=== PATIENT | female | born 1990 | race Hispanic/Latino ===

== ENCOUNTER 2023-04-23 10:46 | Emergency (ER) | payer OTHER, SELFPAY ==
[2023-04-23 11:07] VITALS: BP 110/70; PULSE 89; RESP 16; TEMP 36.8; O2SAT 98
--- NOTE | 2023-04-23 11:38 | ED.SKABFB ---
HPI - Skin/Abscess/Foreign Bdy General Chief complaint: Skin/Abscess/Foreign Body Stated complaint: Open Wounds On Plevis and Armpits, Back Pain Source: patient Mode of arrival: ambulatory Limitations: no limitations History of Present Illness HPI narrative: 32 y/o female with hx RA, lupus, DM1, and hidradenitis suppurativa presented for c/o worsening pain to the wounds. Reports draining boils to bilateral axilla, right inner thigh, and left labia. Endorses pain with walking due to wounds in vaginal area. States she takes Doxy as a maintenance dose, along with clindamycin cream. Also had steroid injections into the wounds recently. She is scheduled to see a studio engineer in June. Pt also states she was seen in the ER yesterday, dx with UTI and started Cipro, hydrocodone, and cyclobenzaprine. States they did not assist with her HS symptoms. Related Data Home Medications Medication Instructions Recorded Confirmed ciprofloxacin HCl 500 mg tablet 500 mg PO DAILY 04/23/23 04/23/23 clindamycin phosphate 1 % topical 2 ea topical BID 04/23/23 04/23/23 gel cyclobenzaprine 10 mg tablet 10 mg PO DAILY 04/23/23 04/23/23 doxycycline monohydrate 100 mg 100 mg PO BID 04/23/23 04/23/23 tablet hydrocodone 5 mg-acetaminophen 325 1 tablet PO PRN PRN Pain 04/23/23 04/23/23 mg tablet hydroxychloroquine 200 mg tablet 200 mg PO DAILY 04/23/23 04/23/23 insulin glargine 100 unit/mL (3 See Rx Instructions .Route .COMPLEX 04/23/23 04/23/23 mL) subcutaneous pen (Basaglar KwikPen U-100 Insulin) liraglutide 0.6 mg/0.1 mL (18 mg/3 See Rx Instructions .Route .COMPLEX 04/23/23 04/23/23 mL) subcutaneous pen injector (Victoza 2-Ulises) Allergies Allergy/AdvReac Type Severity Reaction Status Date / Time Penicillins Allergy Unknown Verified 04/23/23 11:27 Review of Systems Review of Systems: CONSTITUTIONAL: Denies body aches, fever, chills, or sweats. EYES: Denies visual changes, redness, or discharge. ENT: Denies rhinorrhea, congestion CARDIOVASCULAR: Denies chest pain, palpitations, or edema. RESPIRATORY: Denies cough or dyspnea. GASTROINTESTINAL: Denies abdominal pain, nausea, vomiting, or diarrhea. SKIN: reports multiple sites of boils MUSCULOSKELETAL: Denies back pain, joint pain, or myalgia. NEUROLOGIC: Denies headache, numbness, tingling, or weakness. [facility] Past Medical History Medical History (Updated 04/23/23 @ 14:46 by Becky Vasquez APRN) DM type 1 (diabetes mellitus, type 1) JRA (juvenile rheumatoid arthritis) Lupus Comments At time of signature, I have reviewed and agree with nursing past medical, surgical, social and family history unless otherwise noted. Please see nursing chart for further information. There is no relevant family history pertinent to the presenting complaint Exam Narrative: GENERAL: Well-appearing HEAD: Normocephalic, atraumatic. EYES: conjunctivae clear, and EOMI. ENT: Mucous membranes moist. Oropharynx without edema, erythema or lesions. NECK: Supple. No lymphadenopathy CHEST: Clear to auscultation. HEART: Regular rate and rhythm. SKIN: Warm, dry. Scattered areas of scarring and active drainage to Bilateral axilla, bilateral labia, and right upper medial thigh approx 1cm diameter; wounds are draining purulent material c/w HS. Sites are tender. NEURO: Alert and oriented x3. Course Course Emergency Course: Patient is aware of diagnosis, understands and agrees to treatment plan. Anticipatory guidance given. Patient agrees to follow-up as directed and is aware of reasons to seek care at the emergency department. Portions of this record may have been created with voice recognition software Level of Care: Express Care Visit Vital Signs Vital signs: Vital Signs Temperature 98.3 F 04/23/23 11:07 Pulse Rate 89 04/23/23 11:07 Respiratory Rate 16 04/23/23 11:07 Blood Pressure 110/70 04/23/23 11:07 Pulse Oximetry 98 04/23/23 11:07 Oxygen Delivery
== END 2023-04-23 11:48 | disposition home or self-care (01) ==
PROVIDERS: Emergency Provider Nurse Practitioner Family
DX: L73.2 Hidradenitis suppurativa (principal); E10.9 Type 1 diabetes mellitus without complications; Z79.899 Other long term (current) drug therapy; Z79.4 Long term (current) use of insulin; Z79.891 Long term (current) use of opiate analgesic
CPT/HCPCS: 99203; G0463

== ENCOUNTER 2023-07-03 18:29 | Emergency (ER) | payer OTHER, SELFPAY ==
[2023-07-03 18:48] VITALS: BP 133/80; PULSE 91; RESP 18; TEMP 36.7; O2SAT 100
--- NOTE | 2023-07-03 19:34 | ED.URI ---
HPI - URI/Sore Throat General Chief Complaint: Upper Respiratory Infection Stated Complaint: headache,abdominal pain Time Seen by Provider: 07/03/23 19:37 Source: patient and RN notes reviewed Mode of arrival: ambulatory Limitations: no limitations History of Present Illness HPI Narrative: 32-year-old female with hx DM, lupus, HS, presented for complaint of headache, fatigue, abdominal pain, n/v/d intermittently x6 days. Also reports increased thirst, mild sore throat, cough and congestion which are improving. Reports pain is 5/10 to head and middle abdomen. Endorses decreased PO intake due to reflux and nausea. Family has similar symptoms. Taking Excedrin and Benadryl. Reports BS readings yesterday 65-72, did not check levels today. LMP 06/20. Hx jose. Related Data Home Medications Medication Instructions Recorded Confirmed cyclobenzaprine 10 mg tablet 10 mg PO DAILY 04/23/23 04/23/23 hydrocodone 5 mg-acetaminophen 325 1 tablet PO PRN PRN Pain 04/23/23 04/23/23 mg tablet hydroxychloroquine 200 mg tablet 200 mg PO DAILY 04/23/23 04/23/23 insulin glargine 100 unit/mL (3 See Rx Instructions .Route .COMPLEX 04/23/23 04/23/23 mL) subcutaneous pen (Basaglar KwikPen U-100 Insulin) liraglutide 0.6 mg/0.1 mL (18 mg/3 See Rx Instructions .Route .COMPLEX 04/23/23 04/23/23 mL) subcutaneous pen injector (Victoza 2-Ulises) Allergies Allergy/AdvReac Type Severity Reaction Status Date / Time Penicillins Allergy Unknown Verified 07/03/23 19:44 Review of Systems Review of Systems: CONSTITUTIONAL: Reports body aches, fever, chills ENT: Reports rhinorrhea, congestion, right ear pain CARDIOVASCULAR: Denies chest pain, palpitations, or edema. RESPIRATORY: Reports cough denies dyspnea. GASTROINTESTINAL: Endorses abdominal pain, nausea, vomiting, diarrhea. Denies hematochezia, melena, hematemesis GENITOURINARY: Denies dysuria, hematuria, or CVA tenderness. SKIN: Denies rash, itching, or wounds. MUSCULOSKELETAL: Denies back pain, joint pain, myalgia. NEUROLOGIC: Reports headache, denies dizziness, numbness, tingling, or weakness. All systems reviewed & are unremarkable except as noted in HPI and below PMFSH Past Medical History Medical History (Updated 07/03/23 @ 20:17 by Becky Vasquez APRN) DM type 1 (diabetes mellitus, type 1) JRA (juvenile rheumatoid arthritis) Lupus Comments At time of signature, I have reviewed and agree with nursing past medical, surgical, social and family history unless otherwise noted. Please see nursing chart for further information. There is no relevant family history pertinent to the presenting complaint Exam Narrative: GENERAL: Well-appearing, and in no acute distress. EYES: EOMI. Conjunctivae normal. ENT: Mucous membranes pink and moist. Right ear with excess cerumen. Left TM normal. Throat normal. CHEST: No respiratory distress. Clear to auscultation. HEART: Regular rate and rhythm. No murmur appreciated. Normal peripheral pulses. ABDOMEN: abd soft, nondistended, hyper active bowel sounds. Mildly Tender abdomen to epigastric area. No guarding, rebound tenderness, asymmetry EXTREMITIES: Normal range of motion. No edema. SKIN: Warm, dry, no rash. Capillary refill normal. Normal skin turgor. NEURO: No focal deficits. Alert and oriented x3. PSYCH: Normal affect. Course Course Emergency Course: Patient is aware of diagnosis, understands and agrees to treatment plan. Anticipatory guidance given. Patient agrees to follow-up as directed and is aware of reasons to seek care at the emergency department. Portions of this record may have been created with voice recognition software Level of Care: Express Care Visit Vital Signs Vital signs: Vital Signs Temperature 98.1 F 07/03/23 18:48 Pulse Rate 91 07/03/23 18:48 Respiratory Rate 18 07/03/23 18:48 Blood Pressure 133/80 07/03/23 18:48 Pulse Oximetry 100 07/03/23 18:48 Oxygen Delivery Room
== END 2023-07-03 20:00 | disposition home or self-care (01) ==
PROVIDERS: Emergency Provider Nurse Practitioner Family; PCP Physician Assistant
DX: B34.9 Viral infection, unspecified (principal); E10.9 Type 1 diabetes mellitus without complications; M08.00 Unspecified juvenile rheumatoid arthritis of unspecified site; M32.9 Systemic lupus erythematosus, unspecified; F17.290 Nicotine dependence, other tobacco product, uncomplicated
CPT/HCPCS: 99213; G0463

== ENCOUNTER 2023-11-20 13:31 | Emergency (ER) | payer OTHER, SELFPAY ==
[2023-11-20 13:44] VITALS: BP 124/68; PULSE 97; RESP 16; TEMP 36.3; O2SAT 99
--- NOTE | 2023-11-20 13:44 | ED.FEMALEGU ---
HPI - Female Genitourinary General Chief complaint: Skin/Abscess/Foreign Body Stated complaint: pain in pelvic region Time Seen by Provider: 11/20/23 13:44 Source: patient Mode of arrival: ambulatory Limitations: no limitations History of Present Illness HPI Narrative: 33-year-old female presents with complaint of draining abscesses to bilateral axilla, left groin. History of hidradenitis. Sees a television program director at [facility]. Normally does clindamycin ointment, doxycycline twice a day and Cosentyx once a month. states she was having issues with her insurance and was not able to get Cosentyx for the past 2 months. States she was doing really well and not getting any abscesses. Afebrile. Problem with insurance has been fax and will get Cosentyx this Month. All systems reviewed and negative except as noted above. Related Data Home Medications Medication Instructions Recorded Confirmed insulin glargine 100 unit/mL (3 See Rx Instructions .Route .COMPLEX 04/23/23 04/23/23 mL) subcutaneous pen (Basaglar KwikPen U-100 Insulin) liraglutide 0.6 mg/0.1 mL (18 mg/3 See Rx Instructions .Route .COMPLEX 04/23/23 04/23/23 mL) subcutaneous pen injector (Victoza 2-Ulises) gabapentin 300 mg capsule mg 11/20/23 lisinopril 10 mg tablet mg 11/20/23 secukinumab 25 mg/mL intravenous mg IV 11/20/23 solution (Cosentyx) Allergies Allergy/AdvReac Type Severity Reaction Status Date / Time morphine Allergy Rash Verified 11/20/23 13:49 Penicillins Allergy Anaphylaxis Verified 11/20/23 13:49 Review of Systems Review of Systems: CONSTITUTIONAL: Denies fever, chills, or sweats. EYES: Denies visual changes, redness, or discharge. ENT: Denies rhinorrhea, congestion, sore throat, or otalgia. CARDIOVASCULAR: Denies chest pain, palpitations, or edema. RESPIRATORY: Denies cough or dyspnea. GASTROINTESTINAL: Denies abdominal pain, nausea, vomiting, or diarrhea. GENITOURINARY: Denies dysuria or hematuria. SKIN: Denies rash or itching. Reports abscess to bilateral axilla and left groin. MUSCULOSKELETAL: Denies back pain, joint pain, or myalgia. NEUROLOGIC: Denies headache, numbness, or weakness. PSYCHIATRIC: Denies anxiety or depression. All other systems reviewed are negative, except as documented in HPI. [facility] Past Medical History Medical History (Updated 11/20/23 @ 14:04 by Charity Varela NP) DM type 1 (diabetes mellitus, type 1) JRA (juvenile rheumatoid arthritis) Lupus Comments At time of signature, agree with nursing past medical, surgical, social and family history. There is no relevant family history pertinent to the presenting complaint. Exam Narrative: GENERAL: This is a well-nourished, well-developed patient, in no apparent distress. HEAD: normocephalic, atraumatic. EYES: PERRL. Sclera clear/white. Vision is grossly intact. EARS: External ears normal NOSE: External nose normal NECK: Neck supple, non-tender without lymphadenopathy, masses or thyromegaly. CARDIOVASCULAR: Regular rate and rhythm without murmurs, gallops, or rubs. RESPIRATORY: Clear to auscultation. Breath sounds equal bilaterally. No wheezes, rales, or rhonchi. SKIN: warm, Dry, intact with no suspicious rash, good texture and turgor. draining abscess to L groin approx. 4cm. erythematous. no significant fluctuance. 2 to 3 small erythematous abscesses to bilateral axilla, draining. less than 1 cm each. NEURO: awake, alert, and oriented to person, place and time. There were no obvious focal neurologic abnormalities. EXTREMITIES: No joint tenderness, effusion, or edema noted. Course Course Level of Care: Express Care Visit Vital Signs Vital signs: Vital Signs Temperature 36.3 C L 11/20/23 13:44 Pulse Rate 97 11/20/23 13:44 Respiratory Rate 16 11/20/23 13:44 Blood Pressure 124/68 11/20/23 13:44 Pulse Oximetry 99 11/20/23 13:44 Oxygen Delivery Room Air 11/20/23 13:44 Temperature 36.3 C L
[2023-11-20 13:51] LABS: EDUAAPPEAR Cloudy; EDUABILI Negative; EDUABLOOD Negative; EDUACOLOR1 Yellow; EDUAGLUCOSE 2+; EDUAKETONE Negative; EDUALEUKO Trace; EDUANITRATE Negative; EDUAPROTEIN 1+; EDUAUROBILI 0.2
== END 2023-11-20 14:07 | disposition home or self-care (01) ==
PROVIDERS: Emergency Provider Nurse Practitioner Family; PCP Physician Assistant
DX: L02.214 Cutaneous abscess of groin (principal); L02.412 Cutaneous abscess of left axilla; L02.411 Cutaneous abscess of right axilla; E10.9 Type 1 diabetes mellitus without complications; M08.00 Unspecified juvenile rheumatoid arthritis of unspecified site; M32.9 Systemic lupus erythematosus, unspecified
CPT/HCPCS: 81003; 87070; 87205; 99213; G0463

== ENCOUNTER 2023-11-26 18:22 | Emergency (ER) | payer OTHER, SELFPAY ==
[2023-11-26 18:38] VITALS: BP 137/67; PULSE 89; RESP 14; TEMP 36.7; O2SAT 100
--- NOTE | 2023-11-26 19:58 | PC.NURSE ---
Pt ambulated to director of front office and stated she would like to leave. This RN removed her IV, pt ambulated out of the ED.
== END 2023-11-26 20:58 | disposition left against medical advice (07) ==
PROVIDERS: PCP Physician Assistant
DX: S09.90XA Unspecified injury of head, initial encounter (principal)
CPT/HCPCS: 99199

== ENCOUNTER 2024-04-13 16:18 | Emergency (ER) | payer OTHER, SELFPAY ==
--- NOTE | 2024-04-13 16:20 | ED_ITS ---
HPI - URI/Sore Throat General Chief Complaint: Upper Respiratory Infection Stated Complaint: head pain and body pain/ throat pain Time Seen by Provider: 04/13/24 16:19 Source: patient Mode of arrival: ambulatory Limitations: no limitations History of Present Illness HPI Narrative: Fide is a 33-year-old female patient presenting to the clinic today with complaints of headache, body aches, and itchy throat. She reports itchy throat with cough x 1 week but headache and body aches started today. History of Migraine SANCHEZ. Also has history of type 1 diabetes, lupus, RA, and hidradenitis. No fever or chills. Denies chest pain or shortness of breath. Takes doxycycline oral and clindamycin gel daily for hidradenitis. States she would also like her blood sugar checked as she has not been able to check as her monitor is not working. MD elicited complaint: sore throat and other (Headache, bodyaches) Related Data Home Medications ?Medication ?Instructions ?Recorded ?Confirmed ?Last Taken ?Type insulin glargine 100 unit/mL (3 See Rx Instructions .Route .COMPLEX 04/23/23 04/23/23 Unknown History mL) subcutaneous pen (Basaglar KwikPen U-100 Insulin) liraglutide 0.6 mg/0.1 mL (18 mg/3 See Rx Instructions .Route .COMPLEX 04/23/23 04/23/23 Unknown History mL) subcutaneous pen injector (Victoza 2-Ulises) gabapentin 300 mg capsule mg 11/20/23 Unknown History lisinopril 10 mg tablet mg 11/20/23 Unknown History secukinumab 25 mg/mL intravenous mg IV 11/20/23 Unknown History solution (Cosentyx) doxycycline hyclate 100 mg tablet mg 04/13/24 Unknown History Allergies Allergy/AdvReac Type Severity Reaction Status Date / Time morphine Allergy Rash Verified 11/26/23 18:23 Penicillins Allergy Anaphylaxis Verified 11/26/23 18:23 Review of Systems Review of Systems: Pertinent positives per HPI. Patient denies any fever, chills, rash, visual changes, dizziness, shortness of breath, chest pain, palpitations, nausea, vomiting, diarrhea, constipation, abdominal pain, or any urinary issues. [facility] Past Medical History Medical History (Updated 04/13/24 @ 16:57 by Adan Hollingsead, WINDOWS APPLICATION PACKAGER) DM type 1 (diabetes mellitus, type 1) JRA (juvenile rheumatoid arthritis) Lupus Comments At the time of my signature, I reviewed and agree with the nursing past medical, surgical, social, and family history. There is no relevant family history pertinent to the patient complaint. Exam Narrative: General: Well-developed, well nourished, in no apparent distress Head: Normocephalic, atraumatic Eyes: Pupils equally round and reactive to light bilaterally, EOM intact, sclera and conjunctive clear, no discharge, lids normal Ears: TMs intact and clear, ear canals clear, no drainage, grossly hearing normal. Nose: Nares patent, clear nasal discharge, no inflammation, no sinus tenderness. Mouth: Oral pharynx without lesions or masses, good dentition, MMM. Neck: Supple, trachea midline, no enlargement of anterior or posterior cervical nodes, no thyroid masses or goiter palpable. Cardio: Regular rate and rhythm, s1 and s2 normal, no murmur appreciated. Resp: Clear to auscultation bilaterally, no rhonchi, rales, wheezing or rubs Course Course Emergency Course: Portions of this record may have been created with voice recognition software. Level of Care: Express Care Visit Vital Signs Vital signs: Vital Signs Temperature 36.3 C L 04/13/24 16:29 Pulse Rate 88 04/13/24 16:29 Respiratory Rate 18 04/13/24 16:29 Blood Pressure 119/74 04/13/24 16:29 Pulse Oximetry 98 04/13/24 16:29 Oxygen Delivery Room Air 04/13/24 16:29 Temperature 36.3 C L 04/13/24 16:29 Pulse Rate 88 04/13/24 16:29 Respiratory Rate 18 04/13/24 16:29 Blood Pressure 119/74 04/13/24 16:29 Pulse Oximetry 98 04/13/24 16:29 Oxygen Delivery Room Air 04/13/24 16:29 Vital signs reviewed MDM - URI/Sore Throat MDM Narrative Medical decision making narrative: At the time of visit patient is resting comfortably on the exam table. Patient appears to be nontoxic. Labs: Covid, Strep, and bedside glucose was performed. Blood glucose was 249. COVID and strep test were negative. We will send strep for culture. Plan: I suspect patient has postnasal drip that is likely causing the itchy throat. No obvious sign thrush. I also suspect patient has a flare-up of her autoimmune disorders. Recommend increasing gabapentin by 300 mg at night daily to see if this helps alleviate some of her symptoms. She can also take Tylenol as needed for pain. Continue current medications. Will send in a new blood glucose monitor with strips to the pharmacy. Supportive measures were discussed with the patient and they voiced understanding discharge instructions and agrees to treatment plan. Return precautions reviewed Differential Diagnosis Differential diagnosis: Likely upper respiratory infection, otitis media, sinusitis, viral infection, bronchitis, influenza, pharyngitis and other (Over) Lab Data Labs: Lab Results 04/13/24 04/13/24 04/13/24 Range/Units 16:38 16:53 16:54 POC Capillary Glucose 249 H (65-105) mg/dl POC SARS CoV-2 Ag Negative (Negative) POC Grp A Strep Screen Negative (Negative) Discharge Plan Discharge Clinical Impression: PND (post-nasal drip), Generalized body aches Headache Qualifiers: Headache type: unspecified Headache chronicity pattern: acute headache Intractability: not intractable Qualified Code(s): R51.9 - Headache, unspecified Patient Disposition: Home, Self-Care Condition: Stable Instructions: Antibiotic Form, Acute Headache (DC), Musculoskeletal Pain (ED), Postnasal Drip (DC) Additional Instructions: El nivel de az?car en debbie fue 249 en la cl?lina hoy. La prueba de estreptococos y la prueba de COVID dieron negativas hoy en la cl?lina. Enviaremos estreptococos para un cultivo. Si el resultado es positivo, nos comunicaremos con ?l y le recetaremos antibi?ticos en joycelyn momento. Le enviaremos un nuevo monitor de az?car en debbie y tiras a wells farmacia. Puede aumentar la gabapentina: tome 1 c?psula adicional antes de acostarse. Aumente los l?quidos y mant?ngase kemal hidratado. Puede kimberley Tylenol adicionalmente seg?n sea necesario para el dolor y continuar con los medicamentos actuales. Flonase y antihistam?nicos de venta carole seg?n las indicaciones, doris Zyrtec o Claritin Vaya al servicio de urgencias si wells afecci?n empeora: fiebre grace que no se cont sonali con Tylenol o Motrin, deshidrataci?n, debilidad, letargo, dificultad para respirar o dolor en el pecho. Hema un seguimiento con wells PCP en 3 a 5 d?as si los s?ntomas persisten. Patient Language: Serbian Prescriptions: New (DME) Accu-Chek Anita Plus test strp Strip See Rx Instructions .Route Qty: 100 0RF Rx Instructions: As directed May substitute brand No Action insulin glargine [Basaglar KwikPen U-100 Insulin] 100 unit/mL (3 mL) insulin pen See Rx Instructions .ROUTE .COMPLEX Rx Instructions: see rx instructions Victoza 2-Ulises 0.6 mg/0.1 mL (18 mg/3 mL) pen injector See Rx Instructions .ROUTE .COMPLEX Rx Instructions: for type 1 diabetes lidocaine HCl 3 % lotion 1 applic topical TID PRN (Reason: pain) Qty: 177 0RF Rx Instructions: external use only lisinopril 10 mg tablet gabapentin 300 mg capsule Cosentyx 25 mg/mL Solution IV doxycycline hyclate 100 mg tablet Follow-up/Referrals: Mery,YINA Donovan [Primary Care Provider] - Time of Disposition: 16:57 Quality NIHSS Nursing Documentation ED NIHSS nursing documentation: reviewed/agree
[2024-04-13 16:29] VITALS: BP 119/74; PULSE 88; RESP 18; TEMP 36.3; O2SAT 98
[2024-04-13 16:41] LABS: Glucose Point of Care 249 mg/dl (65-105)
[2024-04-13 16:55] LABS: EDCOVIDSCREEN Negative (Negative)
[2024-04-13 16:55] LABS: EDSTREPNEGPOS1 Negative (Negative)
== END 2024-04-13 17:02 | disposition home or self-care (01) ==
PROVIDERS: Emergency Provider Nurse Practitioner Family; PCP Physician Assistant
DX: R09.82 Postnasal drip (principal); M79.10 Myalgia, unspecified site; R51.9 Headache, unspecified; Z20.822 Contact with and (suspected) exposure to COVID-19; E10.9 Type 1 diabetes mellitus without complications; M08.00 Unspecified juvenile rheumatoid arthritis of unspecified site
CPT/HCPCS: 82948; 87081; 87426; 87880; 99213; G0463

== ENCOUNTER 2025-04-06 11:41 | Emergency (ER) | payer MEDICAID, SELFPAY ==
--- NOTE | ~2025-04-06 | XR_ITS ---
Examination: XR chest 2V Clinical History: COUGH, RUNNY NOSE FEVER x1 WK Comparison: None Technique: PA and Lateral Findings: Cardiomediastinal silhouette normal size and configuration. Lungs clear. No acute bony abnormality. IMPRESSION: 1. No acute cardiopulmonary findings. Reviewed, dictated and finalized at location [facility]
--- NOTE | 2025-04-06 11:44 | ECG_ITS ---
Test Date: 2025-04-06 11:52:06 Measurements Intervals [place] Rate: 90 P: 42 SC: 147 QRS: -10 QRSD: 106 T: 11 QT: 353 QTc: 432 Interpretive Statements SINUS RHYTHM INCOMPLETE RIGHT BUNDLE BRANCH BLOCK DELAYED PRECORDIAL R/S TRANSITION CONSIDER INFERIOR INFARCT, AGE INDETERMINATE BASELINE ARTIFACT- V3, V5 ABNORMAL ECG No previous ECG available for comparison Electronically Signed On 04-06-2025 12:01:34 ASSISTANT DESIGNER by Kodi Christopher D.O.
[2025-04-06 11:45] VITALS: BP 144/82; PULSE 95; RESP 16; TEMP 36.4; O2SAT 100
--- OUTSIDE RECORDS SUMMARY | 2025-04-06 11:57 | XMS_ITS | Clinical Summary ---
Author Organization [facility] Address [address] [place] [address] Phone Care Team Providers Care Environmental Aid Name Role Phone Unavailable Primary Care Provider Unavailabl e Allergies Active Allergy Reactions Criticality Noted Date Comments Morphine Itching,Rash,Hives High 03/20/2023 Penicillins Other (See Comments) 12/19/2021 unknown Medications lancets 33 gauge Use to test blood sugar 3 times daily 100 Each 3 06/04/2022 Active blood sugar diagnostic (Blood Glucose Test) Strip Please use test strip to test blood sugar 3 times a day 100 Strip 3 06/04/2022 Active Blood-Glucose Meter Use to test blood sugar up to 3 times daily 1 Each 06/04/2022 Active traMADol 25 mg Tablet Take 25 mg by mouth every 6 hours as needed for Pain. Active Blood-Glucose Sensor (FreeStyle Jina 3 Sensor) Device Change sensor every 14 days 2 Each 08/30/2022 5:00 PM CDT 08/30/2022 Active Insulin [place], Disposable, 32 gauge x 5/32 Needle Use to inject insulin 4 times daily. 100 Each 08/31/2022 3:14 PM CDT 08/31/2022 Active Insulin [place], Disposable, (Dorothy Pen Needle) 32 gauge x 5/32 Needle Use with insulin as directed 100 Each 1 10/26/2022 3:56 PM CDT 10/26/2022 Active Active Problems Problem Noted Date Diagnosed Date Acute cystitis 10/25/2022 Hemorrhagic ovarian cyst 10/25/2022 Ovarian mass, left 10/25/2022 Cellulitis 08/30/2022 Skin abscess 06/03/2022 Abscess of suprapubic region 12/21/2021 Type 1 diabetes mellitus with hyperglycemia 11/2021 Groin region, multiple sites 12/20/2021 Hidradenitis suppurativa 12/20/2021 Fibromyalgia 12/20/2021 Systemic lupus erythematosus 12/20/2021 Obesity (BMI 30.0-34.9) 12/20/2021 Uncontrolled type 1 diabetes mellitus with hyper glycemia 12/20/2021 JRA (juvenile rheumatoid arthritis) 12/20/2021 Tobacco use disorder 12/20/2021 Family History Medical History Relation Name Comments Diabetes Father High Cholesterol Mother Relation Name Status Comments Father Mother Social History Tobacco Use Types Packs/Day Years Used Date Smoking Tobacco: Every Day Cigarettes 0.3 16 Tobacco Cessation:Ready to Q uit: Not Asked; Counseling Given: Not Answered Alcohol Use Standard Drinks/Week Comments Yes 0 (1 standard drink = 0.6 oz pur e alcohol) very occasionally Feeling Safe Answer Date Recorded Are you in a relationship wi th someone who hurts you emotionally and/or physically? No 06/16/2024 Food Insecurity Answer Date Recorded Social/Environmental Concerns No concerns Transportation Needs Answer Date Record ed Social/Environmental Concerns No concerns Housing Stability Answer Date Recorded Social/Environmental Concerns No concerns Utility Needs Answer Date Recorded Social/Environmental Concerns No concerns Comments No Sex and Gender Information Value Date Recorded Sex Assigned at Not on file Legal Sex Female 7:17 PM CDT Gender Identity Not on file Sexual Orientation Not on file Last Filed Vital Signs Vital Sign Reading Time Taken Comments Blood Pressure 144/79 06/16/2024 11:28 AM BEEF PLUCK TRIMMER Pulse 87 06/16/2024 11:28 AM BEEF PLUCK TRIMMER Temperature 37 C (98.6 F) 06/16/2024 4:00 PM BEEF PLUCK TRIMMER Respiratory Rate 16 06/16/2024 4:00 PM BEEF PLUCK TRIMMER Oxygen Saturation 98% 06/16/2024 4:00 PM BEEF PLUCK TRIMMER Inhaled Oxygen Concentration - - Weight 113.4 kg (250 lb) 06/16/2024 11:28 AM BEEF PLUCK TRIMMER Height 180.3 cm (5' 11) 06/16/2024 11:28 AM BEEF PLUCK TRIMMER Body Mass Index 34.87 06/16/2024 11:28 AM BEEF PLUCK TRIMMER Plan of Treatment Health Maintenance Due Date Last Done Comments DIABETES ANNUAL FOOT EXAM 2008 DIABETES ANNUAL RETINAL EXAM 2008 DIABETES MICROALBUMIN ANNUAL SCREEN 2008 LDL CHOLESTEROL ANNUAL 2008 HEPATITIS B VACCINES (1 of 3 - 19+ 3-dose series) 2009 HPV/Cotest (21-29) 09/02/2011 CERVICAL CANCER SCREENING 2020 HPV/Cotest (30-65) 2020 PAP SMEAR 2020 INFLUENZA VACCINE (#1) 2024 12/18/2023 DIABETES HBA1C Q 6 MONTHS 08/25/20252024, 10/02/2024, 06/12/2024, Additional history exists DTAP/TDAP/TD VACCINES (2 - T d or Tdap) 11/13/2033 11/14/2023 HPV VACCINES (No Doses Required) Completed Procedures Procedure Name Priority Date/Time Associated Diagnosis Comments HEMOGLOBIN A1C Stat 10/24/2022 9:01 PM CDT from Last 3 Months or Most Recently Relevant to Health Maintenance Results * (ABNORMAL) HEMOGLOBIN A1C (10/24/2022 9:01 PM CDT) HEMOGLOBIN A1C 9.0(H) <5.7 % 10/25/2022 7:28 AM CDT [facility] EST. AVG GLUCOSE, A1C 212 mg/dL 10/25/2022 7:28 AM CDT [facility] Blood Venipuncture / Unknown 10/24/2022 9:01 PM CDT 10/24/2022 9:05 PM CDT Narrative [facility] - 10/25/2022 7:28 AM CDT HGB A1C INTERPRETATION NORMAL: <5.7% PRE-DIABETES: 5.7 - 6.4% DIABETES: 6.5% OR GREATER Lloyd Jones MD CHEMISTRY ORDERABLES Fi nal Result [facility] CLIA# [id number] [address] [place] [id number] from Last 3 Months or Most Recently Relevant to Health Maintenance Insurance [employer] ([employer]) [employer] ([employer]) [employer] Commercial [[id number] Advance Directives For more information, please contact: [phone] * Full Code (Latest Code Status on File) Date Activated Date Inactivated Comments 10/25/2022 5:05 AM 10/26/2022 6:38 PM * Full Code Date Activated Date Inactivated Comments 08/30/2022 1:45 AM 08/31/2022 5:47 PM * Full Code Date Activated Date Inactivated Comments 06/03/2022 12:38 AM 06/04/2022 11:36 PM * Full Code Date Activated Date Inactivated Comments 12/20/2021 12:12 PM 12/23/2021 8:34 PM * Default Full Code - Needs Discussion Date Activated Date Inactivated Comments 12/20/2021 11:05 AM 12/20/2021 12:11 PM
--- OUTSIDE RECORDS SUMMARY | 2025-04-06 11:57 | XMS_ITS | Clinical Summary ---
Author Organization [facility] Address [address] [place] [address] Care Team Providers Care Coding Educator Name Role Phone Fidelia Ordonez PA-C Primary Care Provider [phone] Allergies Active Allergy Reactions Criticality Noted Date Comments Amoxicillin-Pot Clavulanate Rash Low 04/01/20 Morphine Itching,Rash Medium 02/25/2023 Penicillins Anaphylaxis,Rash High 02/25/2023 Tramadol Rash Low 04/07/2023 Medications phenazopyridine (PYRIDIUM) 200 MG tablet Take 1 tablet (200 mg total) by mouth 3 (three) times daily as needed for Pain. 6 tablet 04/07/20 23 Active clindamycin (CLEOCIN T) 1 % gel Apply topically 2 (two) times daily. 60 g 04/07/20 23 Active BASAGLAR KWIKPEN 100 UNIT/ML injection (PEN) Inject 100 Units into the skin every morning. Active celecoxib (CELEBREX) 200 MG capsule Take 1 capsule (200 mg total) by mouth daily. 07/31/19 24 Active Continuous Glucose Sensor (DEXCOM G6 SENSOR) Misc CHANGE EVERY 10 DAYS 12/30/19 24 Active FARXIGA 10 MG tablet Take 1 tablet (10 mg total) by mouth daily. 12/14/19 24 Active doxycycline hyclate (VIBRA-TABS) 100 MG tablet Take 1 tablet (100 mg total) by mouth 2 (two) times daily. 07/10/19 24 Active Insulin Disposable Pump (OMNIPOD 5 G6 INTRO, GEN 5,) Kit USE CONTINUOUS 0 24 Active liraglutide (VICTOZA) 18 MG/3ML injection Inject 1.2 mg into the skin daily. 03/25/20 23 Active lisinopril (PRINIVIL) 10 MG tablet Take 1 tablet (10 mg total) by mouth daily. 11/18/19 24 Active Secukinumab (COSENTYX UNOREADY) 300 MG/2ML Solution Auto-injector Inject 300 mg into the skin every 28 days. 07/10/19 24 Active HUMALOG KWIKPEN 100 UNIT/ML injection (PEN) see administration instructions. 12/17/19 24 Active cefdinir (OMNICEF) 300 MG Cap capsule Take 1 capsule (300 mg total) by mouth 2 (two) times daily. 20 capsule 02/02/20 24 Active HYDROcodone-acetam inophen (NORCO) 5-325 MG tabletIndications: Acute Pain < 7 Day Supply Take 1 tablet by mouth every 6 (six) hours as needed. Indications: Acute Pain < 7 Day Supply 21 tablet 08/13/19 25 Active naproxen (NAPROSYN) 500 MG tablet Take 1 tablet (500 mg total) by mouth 2 (two) times daily with meals. 12 tablet 08/13/19 25 Active ondansetron (ZOFRAN-ODT) 4 MG disintegrating tablet Take 1 tablet (4 mg total) by mouth every 8 (eight) hours as needed for Nausea. 20 tablet 09/06/19 25 Active Active Problems Problem Noted Date Diagnosed Date Displaced fracture of fifth metatarsal bone, left foot, initial encounter for closed fracture 01/17/2024 Systemic lupus erythematosus , organ or system involvement unspecified 04/21/2023 Social History Tobacco Use Types Packs/Day Years Used Date Smoking Tobacco: Former Cigarettes 1 15 Passive Smoke Exposure: Never Smokeless Tobacco: Never Tobacco Cessation:Counseling Given: No Alcohol Use Standard Drinks/Week Comments Not Currently 0 (1 standard drink = 0.6 oz pur e alcohol) social PHQ-2 Answer Date Recorded Patient Health Questionnaire-2 Score 0 01/17/2024 Comments No Sex and Gender Information Value Date Recorded Sex Assigned at Female 10/03/2024 10:52 AM CDT Legal Sex Female 11:09 AM COFFEE 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 Gender Identity Not on file Sexual Orientation Not on file Last Filed Vital Signs Vital Sign Reading Time Taken Comments Blood Pressure 149/95 10/03/2024 10:55 AM CDT Pulse 98 10/03/2024 10:55 AM CDT Temperature 36.6 C (97.9 F) 10/03/2024 10:55 AM CDT Respiratory Rate 18 10/03/2024 10:55 AM CDT Oxygen Saturation 97% 10/03/2024 11:00 AM CDT Inhaled Oxygen Concentration - - Weight 113.4 kg (250 lb) 10/03/2024 11:00 AM CDT Height 180.3 cm (5' 11) 10/03/2024 11:00 AM CDT Body Mass Index 34.87 10/03/2024 11:00 AM CDT Plan of Treatment Health Maintenance Due Date Last Done Comments Cervical Cancer Screening Pa p Smear (Age 30 to 64) Every 3 Years 1990 Annual Physical 1993 HPV Vaccines (1 - 3-dose SCD M series) 2017 Cervical Cancer Screening Pa p with HPV Testing (Age 30 to 64) Every 5 Years 2020 Cervical Cancer Screening with HPV 2020 Hepatitis B Vaccines (2 of 2 - CpG 2-dose series) 12/14/2023 11/16/2023 PHQ-2 (Physician [place]) 04/15/2024 01/17/2024 COVID-19 Vaccine (1 - 2024-2 6 season) 2024 Influenza Adult (#1) 2025 12/18/2023 DTaP, Tdap and Td Vaccines ( 2 - Td or Tdap) 11/13/2033 11/14/2023 Pneumococcal Vaccine: Pediat rics (0 to 5 Years) and At-Risk Patients (6 to 49 Years) Aged Out 03/12/2023 No longer eligi ble based on patient's age to complete this topic Hepatitis C Completed 01/28/2024 Hepatitis A Vaccines Aged Out No long er eligible based on patient's age to complete this topic Meningococcal B Vaccine Aged Out No l onger eligible based on patient's age to complete this topic Meningococcal Vaccine Aged Out No adrián gretta eligible based on patient's age to complete this topic RSV Immunizations Under 20 Months Aged Out No longer eligible based on patient's age to complete this topic Insurance [employer] Care Teams Coding Educator Relationship Specialty Start Date End Date Fidelia Ordonez PA-C [address] [place] [phone] PCP - General NURSE PRACTITIONER 04/07/23
--- OUTSIDE RECORDS SUMMARY | 2025-04-06 11:57 | XMS_ITS | Encounter Summary ---
Author Organization [facility] Address [address] [place] [address] Care Team Providers Care Wound Care Physician Name Role Phone Fidelia Ordonez PA-C Primary Care Provider Encounter Details Date Type Department Care Team (Late Contact Info) Description 12/11/2023 Telephone [facility] - Endocrinology [address] [place] [address], [place] [address] Florence Sales MD [address] [place] [address] [place] [address] Social History Tobacco Use Types Packs/Day Years Used Date Smoking Tobacco: Former Cigarettes 1 20 0 09/2002 - 09/2022 Smokeless Tobacco: Never Alcohol Use Standard Drinks/Week Comments Not Currently 0 (1 standard drink = 0.6 oz pur e alcohol) AUDIT-C Answer Date Recorded Q1: How often do you have a drink containing alcohol? Never 08/14/2023 Q2: How many drinks containi ng alcohol do you have on a typical day when you are drinking? Patient does not drink Q3: How often do you have si x or more drinks on one occasion? Never 08/14/2023 Comments Unknown Sex and Gender Information Value Date Recorded Sex Assigned at Not on file Legal Sex Female 9:42 AM CDT Gender Identity Not on file Sexual Orientation Not on file documented as of this encounter Miscellaneous Notes * Telephone Encounter - ToddNicole renteria - 12/11/2023 12:44 PM CDT Current Provider: Dr. Florence Sales Reason for Call: Ms. Marie Teran est as new pt w/ Dr. Sales 03/25/23, she missed her FU appt 06/04/23. Dr. Sales's first avails are in April of 2024 and she needs refills on : Basaglar KwikPen (Basaglar) pen Continuous Blood Gluc Sensor (Dexcom G6 Sensor) MISC Continuous Blood Gluc Trim Setter (Dexcom G6 Trim Setter) KATHY Insulin Disposable Pump (Omnipod 5 G6 Intro, Gen 5,) KIT (Stated she lost paper script and never picked up???) She did take May [id number] appt, would like to be seen possibly sooner. She is almost out of hermedicines. Can she see another provider for sooner appt? 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
--- OUTSIDE RECORDS SUMMARY | 2025-04-06 11:57 | XMS_ITS | Data Portability ---
Author Organization [employer] , [facility] Address [address] [place] [address] Assessment No assessment recorded. Plan of Treatment Reminders Order Date Submit Date Provider Last Modified By Organization Details Last Modified Time Details Appointments None recorded. Lab carcinoembr yonic Ag, quant, serum or plasma 2022 023 Parantez [facility], [address] [place], [address], 3 09:10:48 ca 125, serum 2022 023 Parantez [facility], [address] [place], [address], 3 09:10:49 afp (alpha-feto protein) tumor marker, serum or plasma 2022 023 Parantez [facility], [address] [place], [address], 3 09:10:50 unlisted lab - lactic dehydrogena se (LD) 2022 023 myhom[facility] Valentin, [address] [place], [address], 3 12:09:25 beta-HCG, quantitativ e, serum or plasma 2022 023 [facility] Valentin, [address] [place], [address], 12:09:54 Referral None recorded. Procedures None recorded. Surgeries None recorded. Imaging US, pelvis, transabdomi nal + transvagina l 2022 023 [email or web address] Not available 11:12:39 Medication Orders clindamycin 1 % topical gel 2022 023 [id number], [address], [place], [phone], 15:33:32 Patient TargetsNo targets recorded. Patient InstructionsNo instructions recorded. Reason for Referral None Reported. Results Created Date Observation Date Name Description Value Unit Range Abnormal Flag Note LastModifiedBy Organization Detail LastModifiedTime 01/24/2001/24/2023 LD (ROOM TEMP) LD (lactate dehydrogenas e) 162 U/L 135 - 214 normal Not Available [facility] [place], [address], 01/24/2023 12:09:25 01/24/2001/24/2023 HCG, TOTAL , QUANT HCG, total, quant < 2 mIU/m L < 5 Refer ence Range s are for femal es aged 18 years - Adult Nonpr egnan t or preme nopau enmanuel <5 Postm enopa usal <10 Value s from diffe rent assay metho ds may vary. The use of this assay to monit or or to diagn ose patie nts with cance r or any other condi tion unrel ated to pregn garrett has not been valid ated by the [facility] actur er of this assay . Not Available [facility] [place], [address], 01/24/2023 12:09:54 01/24/2001/28/2023 CEA cea <2.0 NG/mL see note: normal Refer ence Range : Non-S moker : <2.5 Smoke r: <5.0 This test was perfo rmed using the Sieme ns chemi lumin escen t metho d. Value s obtai zach from diffe rent assay metho ds canno t be used inter mims eably . CEA level s, regar dless of value , shoul d not be inter prete d as absol graham evide nce of the prese nce or absen ce of disea se. Not Available [address] [address] [place], [address], 01/28/2023 09:10:48 01/24/20 23 01/28/2023 CA 125 Ca 125 10 U/mL <35 normal This test was perfo rmed using the Sieme ns Chemi lumin escen t metho d. Value s obtai zach from diffe rent assay metho ds canno t be used inter mims eably . CA 125 level s, regar dless of value , shoul d not be inter prete d as absol graham evide nce of the prese nce or absen ce of disea se. Not Available [facility] [address] [place], [address], 01/28/2023 09:10:49 01/24/20 23 01/28/2023 ALPHA FETOP ROTEI N, TUMOR MARKE R alpha fetoprotein, tumor marker 1.1 NG/mL Refer ence Range : <6.1 The use of AFP as a tumor marke r in pregn ant femal es is not recom harsh d. This test was perfo rmed using the Beckm an Coult er chemi lumin escen t metho d. Value s obtai zach from diffe rent assay metho ds canno t be used inter mims eay . AFP level s, regar dless of value , shoul d not be inter prete d as absol graham evide nce of the prese nce or absen ce of disea se. Not Available [address] [address] [place], [address], 01/28/2023 09:10:50 02/13/20 23 02/12/2023 US, pelvi s, trans abdom inal + trans vagin al No observ ation record ed. [email or web address] Beth[place] [address] [place] [address], [place], [address], 02/13/2023 12:58:20 Result Notes None recorded. Procedures Surgical History Date Name Laterality Status Provider Name and Address Organization Details Recorded Time delivery completed Lisa Brody [facility] [employer] 01/23/2023 15:14:11 cholecystectomy completed Lisa Brody [facility] [employer] 01/23/2023 15:17:35 [facility] Bartholin's cyst [facility] [employer]/23/2023 15:18:20 ligation of bilateral fallopian tubes completed Lisa [facility] [employer] 01/23/2023 16:07:00 Imaging Results None recorded. Procedure Notes None recorded. Medical Equipment None Reported. Allergies Allergen ID Allergen Name Allergen Category Reaction Reaction Severity Criticality Documentation Date Start Date Code Code System Note Provider Name and Address Organization Details Recorded Time 918932 Product containin g penicilli n (product) medicatio n Not available Not available Not available 01/23/2023 38128 8001 SNOMED Lisa bills, [facility] [employer] 15:10:01 Medications Name Sig Start Date Stop Date Status Note LastModified by Organization Details LastModified Time Celebrex 200 mg capsule Take 1 capsule every day by oral route. active Not Available Not Available No t Available clindamycin 1 % topical gel APPLY THIN LAYER TOPICALLY TO THE AFFECTED AREA TWICE DAILY 02/12 completed Not Available Not Available Not Available gabapentin 300 mg capsule TAKE 1 CAPSULE BY MOUTH EVERY 8 HOURS active Not Available Not Available No t Available doxycycline hyclate 100 mg tablet TAKE 1 TABLET BY MOUTH TWICE DAILY FOR 14 DAYS 02/12 completed Not Available Not Available Not Available oxycodone 5 mg tablet active Not Available Not Available No t Available Humalog KwikPen (U-100) Insulin 100 unit/mL subcutaneou s Inject by subcutane ous route. active Not Available Not Available No t Available Basaglar KwikPen U-100 Insulin 100 unit/mL (3 mL) subcutaneou s ADMINISTE R 100 UNITS UNDER THE SKIN EVERY DAY DIRECTED active Not Available Not Available No t Available Basaglar KwikPen U-100 Insulin active Not Available Not Available Not Available hydroxychlo roquine 400 mg tablet Take 1 tablet every day by oral route. active Not Available Not Available No t Available Vitals Date Recorded Body weight Body temperature Body mass index (BMI) Body height Systolic And Diastolic Provider Name and Address Organization Details Last Updated DateTime 01/23/2023 999144.3 4 g 98.1 [degF] 36.6 kg/m2 177.8 cm 120/72 mm[Hg] Vashti Samaneigo [facility] [employer] [facility] 3 15:05:45 Date Recorded Body height Body mass index (BMI) Body weight Body temperature Systolic And Diastolic Provider Name and Address Organization Details Last Updated DateTime 02/12/2023 177.8 cm 37.2 kg/m2 340481. 14 g 98 [degF] 122/76 mm[Hg] Lisa Brody [facility] [employer] [facility] 15:29:55 Date Recorded Body height Body mass index (BMI) Body weight Body temperature Systolic And Diastolic Provider Name and Address Organization Details Last Updated DateTime 03/18/2023 177.8 cm 38.2 kg/m2 731412. 57 g 97 [degF] 120/80 mm[Hg] Omer Castellanos [facility] [employer] [facility] 12:16:32 Social History Question Answer Notes LastModified by Organizat ion Details LastModified Time Tobacco Smoking Status Never Smoker Lisa Brody [facility] [employer] 01/23/2023 15:17:06 Are You Blind Or Do You Have Difficulty Seeing? No Information not available 01/23/2023 Are You Deaf Or Do You Have Serious Difficulty Hearing? No Information not available 01/23/2023 What Type Of Diet Are You Following? REGULAR Information not available 01/23/2023 How Many Children Do You Have? 2 [email or web address] Information not available 03/18/2023 What Is Your Relationship Status? Single Information not available 01/23/2023 Are You Sexually Active? Yes Information not available 01/23/2023 Sex: Unknown Functional Status Question Answer Note LastModified by Organizat ion Details LastModified Time Do you use any illicit or recreational drugs? No Information not available 01/23/2023 Do you or have you ever used any other forms of tobacco or nicotine? No Information not available 01/23/2023 What is your level of alcohol consumption? None Information not available 01/23/2023 What is your exercise level? None [email or web address] Information not available 01/23/2023 Mental Status None recorded. Family History Relationship Description Onset Age of this Age Resolved Age Notes LastModified by Organization Details LastModified Time Mother Malignant neoplasm of brain Not available 01/13 15:15:29 Father Multiple myeloma Not available 01/13 15:16:13 Medical History Condition Response Lupus Y Diabetes (insulin dependent) Y Gynecological History Statement/Question Response Date of Last Colonoscopy Flow Heavy Date of LMP 03/02/2023 Date of Last Pap Smear Duration of Flow (days) 5 Most Recent Mammogram Current Control Method Tubal Ligat ion Age at Menarche 13 Obstetrics History GPAL:G 2 P 2 0 0 2 Type Value Full Term 2 Living 2 Total 2 Past Encounters Encounter ID Performer Location Encounter Start Date Encounter Closed Date Diagnosis/Indication Diagnosis SNOMED-CT Code Diagnosis ICD10 Code Diagnosis IMO Codes Diagnosis Note [id number] Dave Vega, DO [facility] [address] [place] [address] 01/23/2023 14:51:58 01/24/2023 10:31:53 Screening for malignant neoplasm of ovary 952352869 Z12.73 R19.07 ovarian cyst on october ultrasound - repeat- consider surgery if still present Hidradenit is suppurativa 17434398 L73.2 [id number] SYLVIA RABAGO DO [facility] [address] [place] [address] 02/12/2023 14:59:53 02/12/2023 17:39:52 Cyst of ovary 58705622 N83.209 tumor markers benignUS: uterus wnl. right ovary wnl. left ovary with persistent left complex ovarian cystplan for LSC LSO, as patient has h/o tubal ligation and cyst is likely multiple smaller cysts [id number] SYLVIA RABAGO DO [facility] [address] [place] [address] 03/18/2023 12:03:24 03/18/2023 17:26:11 Postoperative visit 743924727 Z09 32 yo s/p LSC LSO due to ovarian complex cyst. Discussed postoperat jyalyn pathology with patient: endometrio ma and multiple simple cysts.Revi ewed Surgical findings. Patient instructed that she may return to routine activities . All of her questions were answered. Resume routine PIPE [facility]EEPER care. Menorrhagia 284220320 N9 2.0 interested in mirena iud Health Concerns Section Related Observation LastModified by Organization Detai ls LastModified Time None Recorded Concern Status LastModified by Organization Details LastModified Time None Recorded Advance Directives Directive None Recorded Payers Insurance Date Sequence Insurance Name Policy Number Policy [employer] Covered Member ID [employer] Member ID Guarantor Name 03/15/2023 1 [facility] Marie [facility] [id number] 1 [id number] [facility] Notes Date Note Type Note Provider Name and Address Organization Details Recorded Time 3 text/html ROS as noted in the HPI Pt here as referral for mass on left ovary. Dave Vega, [address] [place] [address], [phone], [facility] [employer] 01/23/2023 16:23:37 3 text/html ROS as noted in the HPI Pt here as referral for mass on left ovary. Pt c/o painful ad heavy cycles. Had US in office today. No new concerns. SYLVIA RABAGO, [facility] [place], [address], [facility] [employer] 02/12/2023 16:35:17 3 text/html Post-OpReported by PatientHPIFor onset/timing, patient reportsdate of surgery: (03/05/2023). For quality, patient reportsprocedure: (pr laparoscopy w/rmvl adnexal structureslaparoscopic left salpingo-oophorectomy). For context, patient reportsreason for procedure:(left complete ovarian cyst). For associated symptoms, patient reportsincision healing well. Marie is here for post-op visitpatient state she is feel so much better SYLVIA RABAGO, DO [address] [facility], [place], [address], [facility] 03/18/2023 12:33:36 OBGyn Episode No OBEpisode recorded.
--- OUTSIDE RECORDS SUMMARY | 2025-04-06 11:58 | XMS_ITS | Clinical Summary ---
Author Organization [facility] Address [address] [place] [address] Phone Care Team Providers Care Contact Center Associate Name Role Phone Fidelia Ordonez Primary Care Provider [phone] Medications HYDROcodone-aceta minophen (NORCO) 5-325 MG TabletIndications :Closed nondisplaced fracture of fifth metatarsal bone of left foot, initial encounter Take 1 Tablet by mouth every 4 hours as needed for Moderate or more severe pain. 5 Tablet Active Social History Tobacco Use Types Packs/Day Years Used Date Smoking Tobacco: Never Assessed Comments Unknown Sex and Gender Information Value Date Recorded Sex Assigned at Female 12/30/2023 12:28 AM CDT Legal Sex Female 11:16 PM CDT Gender Identity Female 12/30/2023 12:28 AM CDT Sexual Orientation Not on file Last Filed Vital Signs Vital Sign Reading Time Taken Comments Blood Pressure 136/85 12/30/2023 1:46 AM CDT Pulse 92 12/30/2023 1:46 AM CDT Temperature 36.8 C (98.3 F) 12/29/2023 11:21 PM CDT Respiratory Rate 16 12/30/2023 1:46 AM CDT Oxygen Saturation 99% 12/30/2023 1:46 AM CDT Inhaled Oxygen Concentration - - Weight 113.4 kg (250 lb) 12/29/2023 11:21 PM CDT Height 180.3 cm (5' 11) 12/29/2023 11:21 PM CDT Body Mass Index 34.87 12/29/2023 11:21 PM CDT Plan of Treatment Health Maintenance Due Date Last Done Comments Hepatitis C Virus (HCV) Screening 1990 Varicella Immunization (1 of 2 - 13+ 2-dose series) 09/02/2003 Pap Smear 09/02/2011 Cervical Cancer Screening (CCS) 2020 HPV/Cotest 2020 Hepatitis B Immunization (2 of 2 - CpG 2-dose series) 12/14/2023 11/16/2023 Influenza Immunization (#1) 2024 SARS-COV-2 Immunization ( - 2024- season) 2024 Respiratory Syncytial Virus (RSV) Immunization (Adult) (1 - 1-dose 75+ series) 2065 Pneumococcal Immunization Combined Aged Out 2022 No longer eligible based on patient's age to complete this topic TdaP Immunization Completed 11/14/2023 Human Papillomavirus (HPV) Immunization (No Doses Required) Completed Meningococcal Immunization (ACWY) Aged Out No longer eligible based on patient's age to complete this topic Rotavirus Immunization Aged Out No lo nger eligible based on patient's age to complete this topic Insurance [employer] Care Teams Contact Center Associate Relationship Specialty Start Date End Date Fidelia Ordonez PAC [facility] [place] [address] PCP - General Physician Hypertrichologist 12/30/23
--- OUTSIDE RECORDS SUMMARY | 2025-04-06 11:58 | XMS_ITS | Encounter Summary ---
Author Organization [facility] Address [address] [place] [address] Care Team Providers Care Precision Mechanical Instrument Maker Name Role Phone Unavailable Primary Care Provider Unavailabl e Reason for Visit * Reason Onset Date Comments Medication Refill 05/25/2022 Encounter Details Date Type Department Care Team (Late st Contact Info) Description 05/25/2022 Refill [facility] Adult Hospitalists [address] [address] [place] [id number] [place] [phone] Social History Tobacco Use Types Packs/Day Years Used Date Smoking Tobacco: Every Day Cigarettes 0.3 16 Alcohol Use Standard Drinks/Week Comments Yes 0 (1 standard drink = 0.6 oz pur e alcohol) very occasionally Comments No Sex and Gender Information Value Date Recorded Sex Assigned at Not on file Legal Sex Female 7:17 PM CDT Gender Identity Not on file Sexual Orientation Not on file documented as of this encounter Plan of Treatment Not on file documented as of this encounter Visit Diagnoses Not on filedocumented in this encounter
--- OUTSIDE RECORDS SUMMARY | 2025-04-06 11:58 | XMS_ITS | Clinical Summary ---
Author Organization [facility] Address [address] [place] [address] Care Team Providers Care Dairy Science Teacher Name Role Phone Fidelia Ordonez PA-C Primary Care Provider Source Comments [facility],non-owned Affiliates and Associated Physician Practices is amultiple site organization consisting of ambulatory clinics and hospital sitesin [place], [place], [place] and [place]. This disclosure is being madepursuant to the Care Everywhere program and may not contain all information available regarding this patient. Last updated 18.[facility] [employer] Allergies Active Allergy Reactions Criticality Noted Date Comments Amoxicillin-Pot Clavulanate Rash Medium 04/01/20 24 Morphine Itching 03/20/2023 Morphine Urticaria Medium 08/14/2023 Penicillins Anaphylaxis,Rash High 03/20/2023 Penicillins Anaphylaxis High 08/14/2023 Medications * Be aware that medications may not be up to date on this document. Alwaysverify current medications with the patient. gabapentin (Neurontin) 300 MG capsule Take 1 (one) capsule by mouth once daily 03/04/20 23 Active doxycycline hyclate 100 MG tabletIndications :Hidradenitis suppurativa Take 1 (one) tablet by mouth 2 times daily 180 tablet 3 07/10/19 24 Active Insulin Disposable Pump (Omnipod 5 G6 Intro, Gen 5,) KITIndications:Un controlled type 1 diabetes mellitus with hyperglycemia (HCC) Use 1 Each continuous 1 kit 12/17/19 24 Active Insulin Disposable Pump (Omnipod 5 [id number] Pods Gen 5) MISCIndications:U ncontrolled type 1 diabetes mellitus with hyperglycemia (HCC) Use 1 Each every 2 days 15 Each 11 02/08/20 24 Active nitrofurantoin monohyd macro crystals (Macrobid) 100 MG capsule Take 1 (one) capsule by mouth 2 times daily with morning and evening meal 10 capsule 01/31/20 24 Active fluconazole (Diflucan) 150 MG tablet TAKE 1 TABLET BY MOUTH ONCE DAILY FOR 1 DAY 02/24/20 24 Active lisinopril (Prinivil; Zestril) 10 MG tablet Take 1 (one) tablet by mouth every 24 hours 11/18/19 24 Active DULoxetine (Cymbalta) 60 MG capsule Take 1 (one) capsule by mouth once daily 90 capsule 4 04/14/20 24 Active ondansetron, disintegrating, (Zofran ODT) 4 MG tablet Take 1 (one) tablet by mouth every 8 hours as needed 09/06/19 25 Active HYDROcodone-aceta minophen ([place]ome) 5-325 MG tablet Take 1 (one) tablet by mouth every 6 hours as needed 08/13/19 25 Active Azelastine HCl 137 MCG/SPRAY SOLN USE 2 SPRAY(S) IN EACH NOSTRIL TWICE DAILY 07/08/19 25 Active Continuous Glucose [place] [employer] (FreeStyle Jina 2 [place] Syst) DEVIIndications:U ncontrolled type 1 diabetes mellitus with hyperglycemia (HCC) Use 1 Each once daily 1 Each 10/03/19 25 Active Cosentyx UnoReady 300 MG/2ML SOAJ pen 10/16/19 25 Active hydroxychloroquin e (Plaquenil) 200 MG tablet Take 1 (one) tablet by mouth 2 times daily 180 tablet 1 10/21/19 25 Active meloxicam (Mobic) 15 MG tablet Take 1 (one) tablet by mouth once daily 30 tablet 4 10/21/19 25 Active celecoxib (CeleBREX) 200 MG capsule Take 1 (one) capsule by mouth once daily 10/05/19 25 Active Basaglar KwikPen (Basaglar) pen Inject 80 (eighty) Units subcutaneously once daily 75 mL 3 02/26/20 25 Active insulin lispro (HumaLOG KwikPen) 100 UNIT/ML penIndications:Ot her specified diabetes mellitus with hyperglycemia, with long-term current use of insulin (HCC) Inject 8 (eight) Units subcutaneously 2 times daily, before breakfast and supper 15 mL 02/26/20 Active metFORMIN ER 24hr (Glucophage XR) 500 MG tablet Take 2 (two) tablets by mouth every evening 180 tablet 3 02/26/20 Active Semaglutide (1 MG/DOSE) 4 MG/3ML Subcutaneous Solution Pen-injector (Ozempic (1 MG/DOSE))Indicati ons:Other specified diabetes mellitus with hyperglycemia, with long-term current use of insulin (HCC) Inject 1 (one) mg subcutaneously every 7 days (once a week) 3 mL 02/26/20 Active insulin pen needle (Novofine 31) 31G X 5 MM needleIndications :Other specified diabetes mellitus with hyperglycemia, with long-term current use of insulin (HCC) 1 (one) Each 3 times daily 100 Each 02/26/20 Active FreeStyle Jina 2 Plus Sensor (FreeStyle Jina 2 Sensor System) MISCIndications:U ncontrolled type 1 diabetes mellitus with hyperglycemia (HCC),Other specified diabetes mellitus with hyperglycemia, with long-term current use of insulin (HCC) Use 1 (one) Each every 15 days 2 Each 02/26/20 Active Insulin Disposable Pump (Omnipod 5 Libre2 Plus G6 Pods) MISCIndications:U ncontrolled type 1 diabetes mellitus with hyperglycemia (HCC) Use 1 Each every 3 days 10 Each 02/26/20 Active insulin glargine (Lantus/Semglee) 100 units/mL pen Inject 80 (eighty) Units subcutaneously at bedtime 75 mL 3 03/28/20 Active Active Problems Problem Noted Date Diagnosed Date Displaced fracture of fifth metatarsal bone, left foot, initial encounter for closed fracture 01/17/2024 Systemic lupus erythematosus , organ or system involvement unspecified 04/21/2023 Mixed anxiety and depressive disorder 03/18/2023 Endometriosis 03/11/2023 Overview (01/05/2025): endometriosis on ovary dx via pathology Neuropathy 02/04/2023 Acute cystitis 10/25/2022 Hemorrhagic ovarian cyst 10/25/2022 Ovarian mass, left 10/25/2022 Cellulitis 08/30/2022 Abscess of suprapubic region 12/21/2021 Type 1 diabetes mellitus with hyperglycemia 10/2021 Abscess of skin 12/20/2021 Obesity (BMI 30.0-34.9) 12/20/2021 Fibromyalgia 12/20/2021 Hidradenitis suppurativa 12/20/2021 JRA (juvenile rheumatoid arthritis) 12/20/2021 Tobacco use disorder 12/20/2021 Encounters Date Type Department Care Team Description 03/30/2025 Telephone [facility] - Centralized Scheduling [address] [place] [address] Florence Sales MD Appointment (First attempt. Contacted interpretor, Marguerite ([place] [phone]) to contact patient. Unable to leave voicemail to reschedule. 03/30/2025-CW/Left [employer] message for patient for rescheduling. 03/30/2025-CW/) 03/28/2025 Orders Only [facility] - Endocrinology [address] [place] [phone] Florence Sales MD 02/25/2025 9:40 AM ANALYTICAL DATA MINER Office Visit [facility] - Endocrinology [address] [place] [phone] Florence Sales MD Uncontrolled type 1 diabetes mellitus with hyperglycemia (HCC) (Primary Dx); Other specified diabetes mellitus with hyperglycemia, with long-term current use of insulin (HCC) 02/25/2025 Travel 02/08/2025 Orders Only [facility] - Rheumatology [address] [place] [phone] Elena Howell MD from Last 3 Months Immunizations Immunization Administration Dates Next Due Hep B, Adjuvanted 11/16/2023 INFLUENZA VACCINE, TRIV. (FL UZONE; FLULAVAL; FLUARIX; AFLURIA TRIVALENT; 6MO+), 0.5 ML (IIV3) 12/18/2023 MMR VACCINE 11/14/2023 PNEUMOCOCCAL PCV20 CONJ VAC IM 03/12/2023 POLIO IPV 12/18/2023 TDAP, HISTORIC VACCINE 11/14/2023 Family History Medical History Relation Name Comments Cancer - Other Father Hypertension Father DVT - Deep Vein Thrombosis Maternal Grandmother Hypertension Maternal Grandmother Cancer - Other Mother Hypertension Mother Diabetes - Gestational Paternal Grandmother Diabetes; unknown type Paternal Grandmother Relation Name Status Comments Father Maternal Grandmother Mother Paternal Grandmother Social History Tobacco Use Types Packs/Day Years Used Date Smoking Tobacco: Never Cigarettes 1 20 - 09/2022 Smokeless Tobacco: Never Tobacco Cessation:Counseling Given: Not Answered Alcohol Use Standard Drinks/Week Comments Not Currently [...] more drinks on one occasion? Never 08/14/2023 PHQ-2 Answer Date Recorded Patient Health Questionnaire-2 Score 0 10/20/2024 Comments No Sex and Gender Information Value Date Recorded Sex Assigned at Not on file Legal Sex Female 9:42 AM CDT Gender Identity Not on file Sexual Orientation Not on file Last Filed Vital Signs Vital Sign Reading Time Taken Comments Blood Pressure 121/83 02/25/2025 9:31 AM ANALYTICAL DATA MINER Pulse 98 02/25/2025 9:31 AM ANALYTICAL DATA MINER Temperature 37.3 C (99.2 F) 08/08/2024 7:38 PM CDT Respiratory Rate 13 08/08/2024 9:33 PM CDT Oxygen Saturation 97% 02/25/2025 9:31 AM ANALYTICAL DATA MINER Inhaled Oxygen Concentration - - Weight 112.7 kg (248 lb 6.4 oz) 02/25/2025 9:31 AM ANALYTICAL DATA MINER Height 180.3 cm (5' 11) 02/25/2025 9:31 AM ANALYTICAL DATA MINER Body Mass Index 34.64 02/25/2025 9:31 AM ANALYTICAL DATA MINER Plan of Treatment Upcoming Encounters Date Type Department Care Team (Late st Contact Info) Description 04/27/2025 12:40 PM ANALYTICAL DATA MINER Office Visit [facility] - Rheumatology [address] [place] [address], [place] [address] Elena Howell MD [address] [place] [address] Health Maintenance Due Date Last Done Comments PAP SMEAR 09/02/2011 HPV VACCINE (1 - 3-dose SCDM series) 2017 DIABETES RETINOPATHY SCREENING 03/25/2023 DIABETES-FOOT EXAM WITH MONOFILAMENT 03/25/2023 HEPATITIS B VACCINE (2 of 2 - CpG 2-dose series) 12/14/2023 11/16/2023 DIABETES - URINE PROTEIN SCREENING 04/15/2024 04/19/2023 COVID-19 VACCINE ( - season) 2024 INFLUENZA VACCINE (#1) 2024 12/18/2023 DIABETES-HGB A1C 08/25/2025 02/25/2025, , 06/12/2024, Additional history exists DIABETES-SERUM CREATININE 02/08/20262024, 08/08/2024, 01/28/2024, Additional history exists DTAP/TDAP/TD VACCINES (2 - Td or Tdap) 11/13/2033 11/14/2023 ZOSTER VACCINE (1 of 2) 2040 PNEUMOCOCCAL VACCINE Completed 03/12/2023 HIV SCREENING Completed 04/19/2023 HEPATITIS C SCREENING Completed 01/28/2024, 024 DEPRESSION SCREENING Completed 10/02/2024, 04/14/20 24 HIB VACCINE Aged Out No longer eligi ble based on patient's age to complete this topic MENINGOCOCCAL (Group B) VACCINE SHARED DECISION-MAKING Aged Out No longer eligible based on patient's age to complete this topic MENINGOCOCCAL GROUPS A/C/Y/W VACCINE Aged Out No longer eligible based on patient's age to complete this topic Procedures Procedure Name Priority Date/Time Associated Diagnosis Comments HEMOGLOBIN A1C - POINT OF CARE (AMB) [facility] Routine 02/25/2025 9:49 AM ANALYTICAL DATA MINER Uncontrolled type 1 diabetes mellitus with hyperglycemia (HCC) C-REACTIVE PROTEIN 02/08/2025 1: 54 PM CDT COMPLEMENT C4 02/08/2025 1:54 PM CDT COMPLEMENT C3 02/08/2025 1:54 PM CDT URINALYSIS W/MICROSCOPIC REFLEX TO CULTURE 02/08/2025 1:54 PM CDT CBC W AUTO DIFFERENTIAL 02/08/2025 1:54 PM CDT ERYTHROCYTE SEDIMENTATION RATE 02/08/2025 1:54 PM CDT COMPREHENSIVE METABOLIC PANEL 02/08/2025 1:54 PM CDT CULTURE URINE 02/08/2025 1:54 PM CDT CULTURE URINE REFLEXED II 02/08/2025 1:54 PM CDT HEPATITIS C ANTIBODY Routine 01/28/2024 5:01 PM CDT Polyarthralgia Other fatigue Myalgia Hidradenitis suppurativa of multiple sites Chronic bilateral low back pain, unspecified whether sciatica present HIV-1 HIV-2 ANTIBODY + HIV P24 AG PANEL Routine 04/19/2023 12:35 PM ANALYTICAL DATA MINER Long-term use of high-risk medication MICROALB/CREAT RATIO URINE RANDOM PANEL Routine 04/19/2023 12:33 PM ANALYTICAL DATA MINER Other specified diabetes mellitus with hyperglycemia, with long-term current use of insulin from Last 3 Months or Most Recently Relevant to Health Maintenance Results * HEMOGLOBIN A1C - POINT OF CARE (AMB) [facility] (02/25/2025 9:49 AM ANALYTICAL DATA MINER) Hemoglobin A1c POCT 6.7 % [facility] [address] [facility] BLOOD SPECIMEN / Unknown 02/25/2025 9:49 AM ANALYTICAL DATA MINER us Florence Sales MD LAB - POINT OF CARE ORDERABLES F inal Result Performing Organization Address City/[facility]/ZIP Co de Phone Number LUISA [address] [facility] [address] [facility], [place] [address], [facility] [phone] * CULTURE URINE REFLEXED II (02/08/2025 1:54 PM CDT) Reflexive Urine Culture See Below [facility] Comment: CULTURE INDICATED - RESULTS TO FOLLOW Test Performed at: [facility] [address] DAYAMI BANUELOS MD 02/08/2025 1:54 PM CDT 02/08/2025 1:55 PM CDT Elena Howell MD LAB - MICROBIOLOGY ORD ERABLES Final Result Performing Organization Address [facility] Co de Phone Number [address] [address] * (ABNORMAL) URINALYSIS W/MICROSCOPIC REFLEX TO CULTURE (02/08/2025 1:54 PM CDT) Color UA DARK YELLOW YELLOW [facility] Appearance CLEAR CLEAR [facility] Specific [place] UA 1.021 1.001 - 1.035 [facility] pH UA 6.5 5.0 - 8.0 [facility] Glucose UA TRACE(A) NEGATIVE [facility] Bilirubin UA NEGATIVE NEGATIVE [facility] Ketone UA TRACE(A) NEGATIVE [facility] Blood UA NEGATIVE NEGATIVE [facility] Protein UA 3+(A) NEGATIVE [facility] Nitrite NEGATIVE NEGATIVE [facility] Leukocyte Esterase 1+(A) NEGATIVE [facility] WBC UA 20-40(A) < OR = 5 /HPF [facility] RBC UA NONE SEEN < OR = 2 /HPF [facility] Epithelial Cell UA 6-10(A) < OR = 5 /HPF [facility] Transitional Epithelial Cells [facility] Renal Epithelial Cells [facility] Bacteria UA NONE SEEN NONE SEEN /HPF [facility] Calcium Oxalate Crystals [facility] Triple Phosphate Crystals [facility] Uric Acid Crystals [facility] Amorphous UA [facility] Crystals UA [facility] Hyaline Casts NONE SEEN NONE SEEN /LPF [facility] Granular Casts [facility] Casts UA [facility] Yeast [facility] Comments [facility] Note See Below [facility] Comment: This urine was analyzed for the presence of WBC, RBC, bacteria, casts, and other formed elements. Only those elements seen were reported. Test Performed at: [facility] [address] DAYAMI BANUELOS MD 02/08/2025 1:54 PM CDT 02/08/2025 1:55 PM CDT us Elena Howell MD LAB - URINALYSIS ORDER LEE Final Result Performing Organization Address [facility] Co de Phone Number [address] [address] * C-REACTIVE PROTEIN (02/08/2025 1:54 PM CDT) Pathologist [facility] C-Reactive Protein <5.0 <8.0 mg/L [facility] Comment: Test Performed at: [facility] [address] DAYAMI BANUELOS MD 02/08/2025 1:54 PM CDT 02/08/2025 1:55 PM CDT us Elena Howell MD LAB - CHEMISTRY ORDERA BLES Final Result Performing Organization Address [facility] de Phone Number [address] [address] * CULTURE URINE (02/08/2025 1:54 PM CDT) Pathologist [facility] Culture [facility] Comment: CULTURE, URINE, ROUTINE Micro Number: [id number] Test Status: Final Specimen Source: Urine Specimen Quality: Adequate Result: Mixed genital eran isolated. These superficial bacteria are not indicative of a urinary tract infection. No further organism identification is warranted on this specimen. If clinically indicated, recollect clean-catch, mid-stream urine and transfer immediately to Urine Culture Transport Tube. REPORT COMMENT: FASTING:NO Test Performed at: [facility] [address] DAYAMI BANUELOS MD 02/08/2025 1:54 PM CDT 02/08/2025 1:55 PM CDT us Elena Howell MD LAB - MICROBIOLOGY ORD ERABLES Final Result Performing Organization Address [facility] Co de Phone Number [address] [address] * (ABNORMAL) ERYTHROCYTE SEDIMENTATION RATE (02/08/2025 1:54 PM CDT) Erythrocyte Sedimentation Rate [place] 47(H) < OR = 20 mm/h [facility] Comment: Test Performed at: [facility] [employer] [address] DAYAMI BANUELOS MD 02/08/2025 1:54 PM CDT 02/08/2025 1:55 PM CDT us Elena Howell MD LAB - HEMATOLOGY ORDER LEE Final Result [address] [address] * CBC WITH DIFFERENTIAL (02/08/2025 1:54 PM CDT) Pathologist [facility] White Blood Cell Count 8.5 3.8 - 10.8 Thousand/u L [facility] RBC 4.52 3.80 - 5.10 Million/uL [facility] Hemoglobin 13.6 11.7 - 15.5 g/dL [facility] Hematocrit 41.0 35.0 - 45.0 % [facility] MCV 90.7 80.0 - 100.0 fL [facility] MCH 30.1 27.0 - 33.0 pg [facility] MCHC 33.2 32.0 - 36.0 g/dL [facility] Comment: For adults, a slight decrease in the calculated MCHC value (in the range of 30 to 32 g/dL) is most likely not clinically significant; however, it should be interpreted with caution in correlation with other red cell parameters and the patient's clinical condition. RDW 13.4 11.0 - 15.0 % [facility] Platelet Count 247 140 - 400 Thousand/u L [facility] MPV 12.1 7.5 - 12.5 fL [facility] Neutrophil Absolute 5687 1500 - 7800 cells/uL [facility] Absolute Bands [facility] Metamyelocytes Absolute [facility] Myelocytes Absolute [facility] Absolute Prolymphocytes [facility] Lymphocytes Absolute 2049 850 - 3900 cells/uL [facility] Absolute Monocytes 451 200 - 950 cells/uL [facility] Eosinophils Absolute 264 15 - 500 cells/uL [facility] Basophils Absolute 51 0 - 200 cells/uL [facility] Absolute Blasts [facility] nRBC Absolute [facility] Granulocytes % 66.9 % [facility] Band Neutrophil [facility] Metamyelocytes [facility] Myelocytes [facility] Promyelocytes [facility] Lymphocytes % 24.1 % [facility] Lymphocyte Reactive [facility] Monocytes % 5.3 % [facility] Eosinophils % 3.1 % [facility] Basophils % 0.6 % [facility] Comment: Test Performed at: [facility] [address] DAYAMI BANUELOS MD Blasts [facility] nRBC [facility] Comments [facility] Comment: Test Performed at: [facility] [address] DAYAMI BANUELOS MD 02/08/2025 1:54 PM CDT 02/08/2025 1:55 PM CDT Elena Howell MD LAB - HEMATOLOGY ORDER LEE Final Result Performing Organization Address [facility] Co de Phone Number [address] [address] * COMPLEMENT C4 (02/08/2025 1:54 PM CDT) Pathologist [facility] Complement C4 25 15 - 57 mg/dL [facility] Comment: Test Performed at: [facility] [address] [address] DAYAMI BANUELOS MD 02/08/2025 1:54 PM CDT 02/08/2025 1:55 PM CDT Elena Howell MD LAB - SEROLOGY ORDERAB LES Final Result Performing Organization Address [facility] [place] [place] [address] * (ABNORMAL) COMPREHENSIVE METABOLIC PANEL (02/08/2025 1:54 PM CDT) Glucose 193(H) 65 - 139 mg/dL [facility] Comment: Non-fasting reference interval BUN 15 7 - 25 mg/dL [facility] Creatinine 0.68 0.50 - 0.97 mg/dL [facility] eGFR by Cystatin C 117 > OR = 60 mL/min/1. 73m2 [facility] BUN/Creatinine Ratio SEE NOTE: 6 - 22 (calc) [facility] Comment: Not Reported: BUN and Creatinine are within reference range. Sodium 135 135 - 146 mmol/L [facility] Potassium 4.1 3.5 - 5.3 mmol/L [facility] Chloride 102 98 - 110 mmol/L [facility] CO2 21 20 - 32 mmol/L [facility] Calcium 9.2 8.6 - 10.2 mg/dL [facility] Protein Total 8.0 6.1 - 8.1 g/dL [facility] Albumin 4.2 3.6 - 5.1 g/dL [facility] Globulin Total 3.8(H) 1.9 - 3.7 g/dL (calc) [facility] Albumin/Globulin Ratio 1.1 1.0 - 2.5 (calc) [facility] Bilirubin Total 0.4 0.2 - 1.2 mg/dL [facility] Alkaline Phosphatase 77 31 - 125 U/L [facility] AST 10 10 - 30 U/L [facility] ALT 13 6 - 29 U/L [facility] Comment: Test Performed at: [facility] [address] DAYAMI BANUELOS MD 02/08/2025 1:54 PM CDT 02/08/2025 1:55 PM CDT Elena Howell MD LAB - CHEMISTRY ORDERA BLES Final Result Performing Organization Address [facility] Co de Phone Number [address] [address] * COMPLEMENT C3 (02/08/2025 1:54 PM CDT) [facility] Complement C3 153 83 - 193 mg/dL [facility] Comment: Test Performed at: [facility] [address] [address] DAYAMI BANUELOS MD 02/08/2025 1:54 PM CDT 02/08/2025 1:55 PM CDT Elena Howell MD LAB - CHEMISTRY ORDERA BLES Final Result Performing Organization Address City/[facility] Co de Phone Number [address] [address] * HEPATITIS C ANTIBODY (01/28/2024 5:01 PM CDT) Pathologist [facility] Hepatitis C Antibody Non-react bre Non-reac tive 01/28/2024 6:11 PM CDT [facility] Comment:Hepatitis C Antibody screen indicates no serologic evidence of past or current infection with Hepatitis C Virus. Patients with unexplained liver disease who are immunocompromised or suspected of having acute Hepatitis C infection may benefit from Nucleic Acid Test (LILLI) for Hepatitis C Viral RNA to confirm Hepatitis C status. Blood BLOOD SPECIMEN / Unknown Lab Venipuncture / Unknown 01/28/2024 5:01 PM CDT 01/28/2024 5:38 PM CDT Elena Howell MD LAB - CHEMISTRY ORDERA BLES Final Result [place] [id number] [place] [address], [facility] [phone] * HIV-1 HIV-2 ANTIBODY + HIV P24 AG PANEL (04/19/2023 12:35 PM ANALYTICAL DATA MINER) [facility] HIV Screen 4th Generation w Reflex NON-REACT BRE NON-REACT BRE [facility] Comment: HIV-1 antigen and HIV-1/HIV-2 antibodies were not detected. There is no laboratory evidence of HIV infection. PLEASE NOTE: This information has been disclosed to you from records whose confidentiality may be protected by state law. If your state requires such protection, then the state law prohibits you from making any further disclosure of the information without the specific written consent of the person to whom it pertains, or as otherwise permitted by law. A general authorization for the release of medical or other information is NOT sufficient for this purpose. For additional information please refer to http://education.[employer]/faq/IWG514 (This link is being provided for informational/ educational purposes only.) The performance of this assay has not been clinically validated in patients less than 2 years old. Test Performed at: [facility] [id number] [place] [address] DAYAMI BANUELOS MD Blood BLOOD SPECIMEN / Unknown 04/19/2023 12:35 PM ANALYTICAL DATA MINER 04/19/2023 12:36 PM ANALYTICAL DATA MINER us Darwin Hernandez MD LAB - CHEMISTRY ORDERABLES Fin al Result [facility] [address] [place] [address] * (ABNORMAL) MICROALB/CREAT RATIO URINE RANDOM PANEL (04/19/2023 12:33 PM ANALYTICAL DATA MINER) Creatinine Urine 172 20 - 275 mg/dL [facility] Microalbumin Urine 49.7 mg/dL [facility] Comment: Verified by repeat analysis. Reference Range Not established Microalbumin/Creat inine Ratio 289(H) <30 mcg/mg creat [facility] Comment: The ADA defines abnormalities in albumin excretion as follows: Albuminuria Category Result (mcg/mg creatinine) Normal to Mildly increased <30 Moderately increased 30-299 Severely increased > OR = 300 The ADA recommends that at least two of three specimens collected within a 3-6 month period be abnormal before considering a patient to be within a diagnostic category. Test Performed at: [facility] [address] [place] [address] DAYAMI BANUELOS MD Urine URINE SPECIMEN OBTAINED BY CLEAN CATCH PROCEDURE / Unknown 04/19/2023 12:33 PM ANALYTICAL DATA MINER 04/19/2023 12:34 PM ANALYTICAL DATA MINER Florence Sales MD LAB - URINE CHEMISTRY ORDERABLES Final Result [place] [address] [place] [address] from Last 3 Months or Most Recently Relevant to Health Maintenance Care Teams Dairy Science Teacher Relationship Specialty Start Date End Date Fidelia Ordonez PA-C [facility] [place] [address] PCP - General Physician Wind Site Manager 03/20/23
[2025-04-06 12:04] LABS: Hematocrit 37.9 % (37.0-47.0); Hemoglobin 13.0 g/dL (12.0-15.0); Immature Granulocyte Percent A 0.3 % (0-0.5); Lymphocytes Absolute Auto 1.74 K/mm3 (0.9-3.2); Mean Corpuscular HGB Conc 34.3 g/dl (32-36); Mean Corpuscular Hemoglobin 29.3 pg (26-34); Mean Corpuscular Volume 85.6 fl (80-100); Nucleated Red Blood Cells Absolute Auto 0.000 K/mm3 (0.0-0.012); Nucleated Red Blood Cells Perc 0.0 % (0.0-0.2); Platelet Count Result 211 k/mm3 (150-375); Red Blood Count 4.43 M/mm3 (4.2-5.4); White Blood Count 6.2 K/mm3 (4.5-10.0)
[2025-04-06 12:17] LABS: Alanine Aminotransferase 26 U/L (6-35); Albumin Level 4.1 g/dL (3.5-5.1); Alkaline Phosphatase 102 U/L (38-126); Anion Gap 10 mmol/L (4-12); Aspartate Amino Transferase 23 U/L (14-36); Bilirubin,Total 0.4 mg/dL (0.2-1.3); Blood Urea Nitrogen 13 mg/dL (7-17); Calcium 9.2 mg/dL (8.4-10.2); Carbon Dioxide 22 mmol/L (22-30); Chloride 104 mmol/L (98-107); Estimated CRCL calculation 151 ml/min; Estimated Glomerular Filt Rate > 60; Glucose 180 mg/dL (65-110); Lipase 96 U/L (23-300); Potassium 3.8 mmol/L (3.4-5.0); Sodium 136 mmol/L (137-145); Total Protein 8.2 g/dL (6.3-8.2)
[2025-04-06 12:28] LABS: Troponin I < 0.012 ng/mL (0.000-0.034)
[2025-04-06 12:30] LABS: INR 1.0; Partial Thromboplastin Time 24.6 Seconds (22.3-36.8); Prothrombin Time 12.9 Seconds (11.1-14.7)
[2025-04-06 12:49] VITALS: BP 147/93; PULSE 93; RESP 18; O2SAT 100
[2025-04-06 12:51] VITALS: O2SAT 100
--- OUTSIDE RECORDS SUMMARY | 2025-04-06 13:14 | XMS_ITS | Clinical Summary ---
Author Organization [facility] Address [address] [place] [address] Care Team Providers Care Service Sprinkler Helper Name Role Phone Fidelia Ordonez PA-C Primary Care Provider Source Comments [facility],non-owned Affiliates and Associated Physician Practices is amultiple site organization consisting of ambulatory clinics and hospital sitesin [place], [place], [place] and [place]. This disclosure is being madepursuant to the Care Everywhere program and may not contain all information available regarding this patient. Last updated 18.[facility] Plum Baby Allergies Active Allergy Reactions Criticality Noted Date [...] 24 Active Insulin Disposable Pump (Omnipod 5 NriG1M8 Pods Gen 5) MISCIndications:U ncontrolled type 1 [...] as needed 09/06/19 25 Active HYDROcodone-aceta minophen (Minden) 5-325 MG tablet Take 1 (one) tablet by mouth every 6 hours as needed 08/13/19 25 Active Azelastine HCl 137 MCG/SPRAY SOLN USE 2 SPRAY(S) IN EACH NOSTRIL TWICE DAILY 07/08/19 25 Active Continuous Glucose Chargemaster Analyst (FreeStyle Jina 2 Arley Syst) DEVIIndications:U ncontrolled type 1 diabetes mellitus [...] [facility] - Centralized Scheduling [address] [place] [address] Florence Sales MD Appointment (First attempt. Contacted interpretor, Marguerite ([place] [phone]) to contact patient. Unable to leave voicemail to reschedule. 03/30/2025-CW/Left benchee message for patient for rescheduling. 03/30/2025-CW/) 03/28/2025 Orders Only [facility] - Endocrinology [address] [place] [phone] Florence Sales MD 02/25/2025 9:40 AM ELECTRONIC INDUSTRIAL CONTROLS MECHANIC Office Visit [facility] - Endocrinology [address] [place] [phone] Florence Sales MD Uncontrolled type 1 diabetes mellitus with hyperglycemia (HCC) (Primary Dx); Other specified diabetes mellitus with hyperglycemia, with long-term current use of insulin (HCC) 02/25/2025 Travel 02/08/2025 Orders Only [facility] - Rheumatology [address] [place] [phone] Elena Howell MD from Last 3 Months [...] Comments Blood Pressure 121/83 02/25/2025 9:31 AM ELECTRONIC INDUSTRIAL CONTROLS MECHANIC Pulse 98 02/25/2025 9:31 AM ELECTRONIC INDUSTRIAL CONTROLS MECHANIC Temperature 37.3 C (99.2 F) 08/08/2024 7:38 PM CDT Respiratory Rate 13 08/08/2024 9:33 PM CDT Oxygen Saturation 97% 02/25/2025 9:31 AM ELECTRONIC INDUSTRIAL CONTROLS MECHANIC Inhaled Oxygen Concentration - - Weight 112.7 kg (248 lb 6.4 oz) 02/25/2025 9:31 AM ELECTRONIC INDUSTRIAL CONTROLS MECHANIC Height 180.3 cm (5' 11) 02/25/2025 9:31 AM ELECTRONIC INDUSTRIAL CONTROLS MECHANIC Body Mass Index 34.64 02/25/2025 9:31 AM ELECTRONIC INDUSTRIAL CONTROLS MECHANIC Plan of Treatment Upcoming Encounters Date Type Department Care Team (Late st Contact Info) Description 04/27/2025 12:40 PM ELECTRONIC INDUSTRIAL CONTROLS MECHANIC Office Visit [facility] - Rheumatology [address] [place] [address], [place] [address] Elena Howell MD [address] [place] [address] Health Maintenance Due Date Last [...] CARE (AMB) [facility] Routine 02/25/2025 9:49 AM ELECTRONIC INDUSTRIAL CONTROLS MECHANIC Uncontrolled type 1 diabetes mellitus with hyperglycemia [...] P24 AG PANEL Routine 04/19/2023 12:35 PM ELECTRONIC INDUSTRIAL CONTROLS MECHANIC Long-term use of high-risk medication MICROALB/CREAT RATIO URINE RANDOM PANEL Routine 04/19/2023 12:33 PM ELECTRONIC INDUSTRIAL CONTROLS MECHANIC Other specified diabetes mellitus with hyperglycemia, with long-term current use of insulin from Last 3 Months or Most Recently Relevant to Health Maintenance Results * HEMOGLOBIN A1C - POINT OF CARE (AMB) [facility] (02/25/2025 9:49 AM ELECTRONIC INDUSTRIAL CONTROLS MECHANIC) Hemoglobin A1c POCT 6.7 % [facility] [address] [facility] BLOOD SPECIMEN / Unknown 02/25/2025 9:49 AM ELECTRONIC INDUSTRIAL CONTROLS MECHANIC us Florence Sales MD LAB - POINT OF CARE ORDERABLES F inal Result Performing Organization Address City/[facility]/ZIP Co de Phone Number LUISA [address] [facility] [address] [facility] [place] [address], [facility] [phone] * CULTURE URINE REFLEXED II (02/08/2025 1:54 PM CDT) Reflexive Urine Culture See Below [facility] Comment: CULTURE INDICATED - RESULTS TO FOLLOW Test Performed at: [facility] [address] DAYAMI BANUELOS MD 02/08/2025 1:54 PM CDT 02/08/2025 1:55 PM CDT Elena Howell MD LAB - MICROBIOLOGY ORD ERABLES Final Result Performing Organization Address [facility] Co de Phone Number [address] [address] * (ABNORMAL) URINALYSIS W/MICROSCOPIC REFLEX TO CULTURE (02/08/2025 1:54 PM CDT) Color UA DARK YELLOW YELLOW [facility] Appearance CLEAR CLEAR [facility] Specific [place] UA 1.021 1.001 - 1.035 [facility] pH [...] elements seen were reported. Test Performed at: [facility] [address] DAYAMI BANUELOS MD 02/08/2025 1:54 PM CDT 02/08/2025 1:55 PM CDT us Elena Howell MD LAB - URINALYSIS ORDER LEE Final Result Performing Organization Address [facility] Co de Phone Number [address] [address] * C-REACTIVE PROTEIN (02/08/2025 1:54 PM CDT) Pathologist [facility] C-Reactive Protein <5.0 <8.0 mg/L [facility] Comment: Test Performed at: [facility] [address] DAYAMI BANUELOS MD 02/08/2025 1:54 PM CDT 02/08/2025 1:55 PM CDT us Elena Howell MD LAB - CHEMISTRY ORDERA BLES Final Result Performing Organization Address [facility] de Phone Number [address] [address] * CULTURE URINE (02/08/2025 1:54 PM CDT) Pathologist [facility] Culture [facility] Comment: CULTURE, URINE, ROUTINE Micro Number: [id number] Test Status: Final Specimen Source: Urine Specimen Quality: Adequate Result: Mixed genital eran isolated. These superficial bacteria are not indicative of a urinary tract infection. No further organism identification is warranted on this specimen. If clinically indicated, recollect clean-catch, mid-stream urine and transfer immediately to Urine Culture Transport Tube. REPORT COMMENT: FASTING:NO Test Performed at: [facility] [address] DAYAMI BANUELOS MD 02/08/2025 1:54 PM CDT 02/08/2025 1:55 PM CDT us Elena Howell MD LAB - MICROBIOLOGY ORD ERABLES Final Result Performing Organization Address [facility] Co de Phone Number [address] [address] * (ABNORMAL) ERYTHROCYTE SEDIMENTATION RATE (02/08/2025 1:54 PM CDT) Erythrocyte Sedimentation Rate Westergren 47(H) < OR = 20 mm/h [facility] Comment: Test Performed at: [facility] [address] DAYAMI BANUELOS MD 02/08/2025 1:54 PM CDT 02/08/2025 1:55 PM CDT us Elena Howell MD LAB - HEMATOLOGY ORDER LEE Final Result [address] [address] * CBC WITH DIFFERENTIAL (02/08/2025 1:54 PM CDT) Pathologist [facility] White Blood Cell Count 8.5 3.8 - [...] 0.6 % [facility] Comment: Test Performed at: [facility] [address] DAYAMI BANUELOS MD Blasts [facility] nRBC [facility] Comments [facility] Comment: Test Performed at: [facility] [address] DAYAMI BANUELOS MD 02/08/2025 1:54 PM CDT 02/08/2025 1:55 PM CDT Elena Howell MD LAB - HEMATOLOGY ORDER LEE Final Result Performing Organization Address [facility] Co de Phone Number [address] [address] * COMPLEMENT C4 (02/08/2025 1:54 PM CDT) Pathologist [facility] Complement C4 25 15 - 57 mg/dL [facility] Comment: Test Performed at: [facility] [address] [address] DAYAMI BANUELOS MD 02/08/2025 1:54 PM CDT 02/08/2025 1:55 PM CDT Elena Howell MD LAB - SEROLOGY ORDERAB LES Final Result Performing Organization Address [facility] [place] [place] [address] * (ABNORMAL) COMPREHENSIVE METABOLIC PANEL (02/08/2025 1:54 [...] 29 U/L [facility] Comment: Test Performed at: [facility] [address] DAYAMI BANUELOS MD 02/08/2025 1:54 PM CDT 02/08/2025 1:55 PM CDT Elena Howell MD LAB - CHEMISTRY ORDERA BLES Final Result Performing Organization Address [facility] Co de Phone Number [address] [address] * COMPLEMENT C3 (02/08/2025 1:54 PM CDT) [facility] Complement C3 153 83 - 193 mg/dL [facility] Comment: Test Performed at: [facility] [address] [address] DAYAMI BANUELOS MD 02/08/2025 1:54 PM CDT 02/08/2025 1:55 PM CDT Elena Howell MD LAB - CHEMISTRY ORDERA BLES Final Result Performing Organization Address City/[facility] Co de Phone Number [address] [address] * HEPATITIS C ANTIBODY (01/28/2024 5:01 PM CDT) Pathologist [facility] Hepatitis C Antibody Non-react bre Non-reac tive 01/28/2024 6:11 PM CDT [facility] Comment:Hepatitis C Antibody screen indicates [...] LAB - CHEMISTRY ORDERA BLES Final Result [place] [id number] [place] [address], [facility] [phone] * HIV-1 HIV-2 ANTIBODY + HIV P24 AG PANEL (04/19/2023 12:35 PM ELECTRONIC INDUSTRIAL CONTROLS MECHANIC) [facility] HIV Screen 4th Generation w [...] purpose. For additional information please refer to http://education.Backchat.HYLA Mobile/faq/KZI283 (This link is being provided for informational/ educational purposes only.) The performance of this assay has not been clinically validated in patients less than 2 years old. Test Performed at: [facility] [address] [place] [address] DAYAMI BANUELOS MD Blood BLOOD SPECIMEN / Unknown 04/19/2023 12:35 PM ELECTRONIC INDUSTRIAL CONTROLS MECHANIC 04/19/2023 12:36 PM ELECTRONIC INDUSTRIAL CONTROLS MECHANIC us Darwin Hernandez MD LAB - CHEMISTRY ORDERABLES Fin al Result [facility] [address] [place] [address] * (ABNORMAL) MICROALB/CREAT RATIO URINE RANDOM PANEL (04/19/2023 12:33 PM ELECTRONIC INDUSTRIAL CONTROLS MECHANIC) Creatinine Urine 172 20 - 275 mg/dL [...] within a diagnostic category. Test Performed at: [facility] [address] [place] [address] DAYAMI BANUELOS MD Urine URINE SPECIMEN OBTAINED BY CLEAN CATCH PROCEDURE / Unknown 04/19/2023 12:33 PM ELECTRONIC INDUSTRIAL CONTROLS MECHANIC 04/19/2023 12:34 PM ELECTRONIC INDUSTRIAL CONTROLS MECHANIC Florence Sales MD LAB - URINE CHEMISTRY ORDERABLES Final Result [place] [address] [place] [address] from Last 3 Months or Most Recently Relevant to Health Maintenance Care Teams Service Sprinkler Helper Relationship Specialty Start Date End Date Fidelia Ordonez PA-C [facility] [place] [address] PCP - General Physician [employer] Paralegal 03/20/23
--- OUTSIDE RECORDS SUMMARY | 2025-04-06 13:14 | XMS_ITS | Clinical Summary ---
Author Organization [facility] Address [address] [place] [address] Care Team Providers Care Sewing Machine Attachment Tester Name Role Phone Fidelia Ordonez PA-C Primary Care Provider [phone] Allergies Active Allergy Reactions Criticality Noted Date [...] AM CDT Legal Sex Female 11:09 AM INSPECTOR INTEGRATED CIRCUITS Gender Identity Not on file Sexual Orientation [...] CpG 2-dose series) 12/14/2023 11/16/2023 PHQ-2 (Physician [place]) 04/15/2024 01/17/2024 COVID-19 Vaccine (1 - 2024-2 [...] complete this topic Insurance AMBETTER Care Teams Sewing Machine Attachment Tester Relationship Specialty Start Date End Date Fidelia Ordonez PA-C [address] [place] [phone] PCP - General NURSE PRACTITIONER 04/07/23
--- OUTSIDE RECORDS SUMMARY | 2025-04-06 13:14 | XMS_ITS | Encounter Summary ---
Author Organization [facility] Address [address] [facility] [place] [address] Care Team Providers Care Milling General Superintendent Name Role Phone Fidelia Ordonez PA-C Primary Care Provider Encounter Details Date Type Department Care Team (Late Contact Info) Description 12/11/2023 Telephone [facility] - Endocrinology [address] [place] [address], [place] [address] Florence Sales MD [address] [place] [address] [place] [address] Social History Tobacco Use Types [...] (Dexcom G6 Sensor) MISC Continuous Blood Gluc Silo Filler (Dexcom G6 Silo Filler) KATHY Insulin Disposable Pump (Omnipod 5 G6 Intro, Gen 5,) KIT (Stated she lost paper script and never picked up???) She did take May 112024 appt, would like to be seen possibly sooner. She is almost out of hermedicines. Can she see another provider for sooner appt? Patient Call Back Number: [phone] documented in this encounter Plan of Treatment Upcoming Encounters Date Type Department Care Team (Late st Contact Info) Description 04/27/2025 12:40 PM LAWN CARE SPECIALIST Office Visit [facility] - Rheumatology [address] [place] [address], [place] [address] Elena Howell MD [address] [place] [address] [place] [phone] documented as of this encounter Visit Diagnoses Not on filedocumented in this encounter Care Teams Milling General Superintendent Relationship Specialty Start Date End Date Fidelia Ordonez PA-C [address] [place] [phone] PCP - General Physician Concert Manager 03/20/23 documented as of this encounter
--- OUTSIDE RECORDS SUMMARY | 2025-04-06 13:14 | XMS_ITS | Clinical Summary ---
Author Organization [facility] Address [address] [place] [address] Phone Care Team Providers Care Dairy Farmer Name Role Phone Fidelia Ordonez Primary Care Provider [phone] Medications HYDROcodone-aceta minophen (NORCO) 5-325 MG TabletIndications [...] complete this topic Insurance AMBETTER Care Teams Dairy Farmer Relationship Specialty Start Date End Date Fidelia Ordonez PAC [facility] [place] [address] PCP - General Physician Blintze Roller 12/30/23
--- OUTSIDE RECORDS SUMMARY | 2025-04-06 13:14 | XMS_ITS | Clinical Summary ---
Author Organization [facility] Address [address] [place] [address] Phone Care Team Providers Care Electric Detector Operator Name Role Phone Unavailable Primary Care Provider [...] 08/30/2022 5:00 PM CDT 08/30/2022 Active Insulin Animas, Disposable, 32 gauge x 5/32 Needle Use to inject insulin 4 times daily. 100 Each 08/31/2022 3:14 PM CDT 08/31/2022 Active Insulin Animas, Disposable, (Dorothy Pen Needle) 32 gauge x [...] Comments Blood Pressure 144/79 06/16/2024 11:28 AM CLOTH SHRINKING TESTER Pulse 87 06/16/2024 11:28 AM CLOTH SHRINKING TESTER Temperature 37 C (98.6 F) 06/16/2024 4:00 PM CLOTH SHRINKING TESTER Respiratory Rate 16 06/16/2024 4:00 PM CLOTH SHRINKING TESTER Oxygen Saturation 98% 06/16/2024 4:00 PM CLOTH SHRINKING TESTER Inhaled Oxygen Concentration - - Weight 113.4 kg (250 lb) 06/16/2024 11:28 AM CLOTH SHRINKING TESTER Height 180.3 cm (5' 11) 06/16/2024 11:28 AM CLOTH SHRINKING TESTER Body Mass Index 34.87 06/16/2024 11:28 AM CLOTH SHRINKING TESTER Plan of Treatment Health Maintenance Due Date [...] 9.0(H) <5.7 % 10/25/2022 7:28 AM CDT [facility] EST. AVG GLUCOSE, A1C 212 mg/dL 10/25/2022 7:28 AM CDT [facility] Blood Venipuncture / Unknown 10/24/2022 9:01 PM CDT 10/24/2022 9:05 PM CDT Narrative [facility] - 10/25/2022 7:28 AM CDT HGB A1C INTERPRETATION NORMAL: <5.7% PRE-DIABETES: 5.7 - 6.4% DIABETES: 6.5% OR GREATER Lloyd Jones MD CHEMISTRY ORDERABLES Fi nal Result [facility] CLIA# [id number] [address] [place] [id number] from Last 3 Months or Most Recently Relevant to Health Maintenance Insurance [employer] (INTERNAL) [employer] (INTER[employer]) [employer] Commercial [[id number] Advance Directives For more information, please contact: [phone] * Full Code (Latest Code Status on [...]
--- OUTSIDE RECORDS SUMMARY | 2025-04-06 13:14 | XMS_ITS | Encounter Summary ---
Author Organization [facility] Address [address] [place] [address] Care Team Providers Care Forge Tender Name Role Phone Unavailable Primary Care Provider Unavailabl e Reason for Visit * Reason Onset Date Comments Medication Refill 05/25/2022 Encounter Details Date Type Department Care Team (Late st Contact Info) Description 05/25/2022 Refill [facility] Adult Hospitalists [address] [address] [place] [id number] [place] [address] Social History Tobacco Use Types Packs/Day [...]
--- NOTE | 2025-04-06 13:32 | PC.NURSE ---
No Aspirin needed per EDP
[2025-04-06 14:01] LABS: Influenza A QL RT-PCR Negative (Negative); Influenza B QL RT-PCR Negative (Negative); RSV RNA, RT-PCR Negative (Negative); SARS-CoV-2 RNA PCR Positive (Negative)
[2025-04-06 15:09] LABS: Troponin I < 0.012 ng/mL (0.000-0.034)
--- NOTE | 2025-04-06 15:11 | ED_ITS ---
HPI - Chest Pain General Chief Complaint: Chest Pain Stated Complaint: chest pain, SOB Time Seen by Provider: 04/06/25 12:53 Source: patient Mode of arrival: ambulatory Limitations: no limitations History of Present Illness HPI narrative: This is a 34-year-old female that presents to the emergency department for cold symptoms. Present over the last week. Reports fever, cough, shortness of breath. Also endorses chest pain. Related Data Home Medications ?Medication ?Instructions ?Recorded ?Confirmed ?Last Taken ?Type insulin glargine 100 unit/mL (3 See Rx Instructions .R oute .COMPLEX 04/23/23 04/23/23 Unknown History mL) subcutaneous pen (Basaglar KwikPen U-100 Insulin) liraglutide 0.6 mg/0.1 mL (18 mg/3 See Rx Instructions .Route .COMPLEX 04/23/23 04/23/23 Unknown History mL) subcutaneous pen injector (Victoza 2-Ulises) gabapentin 300 mg capsule mg 11/20/23 Unknown History lisinopril 10 mg tablet mg 11/20/23 Unknown History secukinumab 25 mg/mL intravenous mg IV 11/20/23 Unkno wn History solution (Cosentyx) doxycycline hyclate 100 mg tablet mg 04/13/24 Unknown History Allergies Allergy/AdvReac Type Severity Reaction Status Date / Time morphine Allergy Rash Verified 04/06/25 11:42 Penicillins Allergy Anaphylaxis Verified 04/06/25 11:42 Review of Systems 2 Review of Systems: All systems reviewed & are unremarkable except as noted in HPI and below PMFSH Past Medical History Medical History (Updated 04/06/25 @ 15:11 by Petra Pereira PA-C) DM type 1 (diabetes mellitus, type 1) JRA (juvenile rheumatoid arthritis) Lupus Exam 2 Narrative: GENERAL: Well-appearing, well-nourished, and in no acute distress. HEAD: Normocephalic, atraumatic. EYES: EOMI. ENT: Nares clear, no rhinorrhea or epistaxis. Mucous membranes moist. Oropharynx without tonsillar hypertrophy exudate or other lesions. Bilateral TMs pearly cloud non-bulging NECK: Supple. No adenopathy or masses. CHEST: Clear to auscultation. No respiratory distress. No wheezes rales or rhonchi HEART: Regular rate and rhythm. No murmur heard. Normal peripheral pulses. EXTREMITIES: Normal range of motion. No edema. SKIN: Warm, dry, no rash. NEURO: No focal deficits. Alert and oriented x3. PSYCH: Normal mood and affect Course Vital Signs Vital signs: Vital Signs Temperature 97.6 F 04/06/25 11:45 Pulse Rate 95 04/06/25 11:45 Respiratory Rate 16 04/06/25 11:45 Blood Pressure 144/82 H 04/06/25 11:45 Pulse Oximetry 100 04/06/25 11:45 Oxygen Delivery Room Air 04/06/25 11:45 Temperature 97.6 F 04/06/25 11:45 Pulse Rate 93 04/06/25 12:49 Respiratory Rate 18 04/06/25 12:49 Blood Pressure 147/93 H 04/06/25 12:49 Pulse Oximetry 100 04/06/25 12:51 Oxygen Delivery Room Air 04/06/25 12:51 MDM MDM Narrative Medical decision making narrative: Patient presents to the emergency department for cold symptoms present over the last week. She is afebrile and nontoxic appearing. Her vitals are stable. Cbc without leukocytosis. Metabolic panel normal kidney function. COVID test is positive. EKG without acute ST changes, baseline and 3 hour troponin are negative. D-dimer is not elevated. Chest x-ray without acute cardiopulmonary abnormality. Patient updated on her workup. Instructed on continued symptomatic care of viral infection. Given warnings to return the ER Differential Diagnosis Differential Diagnosis: COVID, influenza, pneumonia, PE Lab Data MDM Lab Attestation statement: I personally reviewed the patient's lab results. 04/06/25 11:57 04/06/25 11:57 Labs: Lab Results 04/06/25 04/06/25 04/06/25 Range/Units 11:57 11:57 13:16 WBC 6.2 (4.5-10.0) K/mm3 RBC 4.43 (4.2-5.4) M/mm3 Hgb 13.0 (12.0-15.0) g/dL Hct 37.9 (37.0-47.0) % MCV 85.6 (80-100) fl MCH 29.3 (26-34) pg MCHC 34.3 (32-36) g/dl RDW 12.9 (11.5-14.5) % Plt Count 211 (150-375) k/mm3 MPV 10.2 (7.4-10.4) fl Immature Gran % (Auto) 0.3 (0-0.5) % Neut % (Auto) 61.9 (45.5-73.1) % Lymph % (Auto) 28.2 (18.3-44.2) % [place] % (Auto) 6.0 (2.6-8.5) % Eos % (Auto) 3.1 (0-4.4) % Baso % (Auto) 0.5 (0.2-1.2) % Lymph # (Auto) 1.74 (0.9-3.2) K/mm3 [place] # (Auto) 0.4 (0.1-0.6) K/mm3 Eos # (Auto) 0.2 (0-0.3) K/mm3 Baso # (Auto) 0.0 (0.0-0.1) K/mm3 Abs Immat Gran (auto) 0.02 (0.00-0.031) K/mm3 Absolute Neuts (auto) 3.8 (1.3-6.7) K/mm3 Absolute Nucleated RBC 0.000 (0.0-0.012) K/mm3 Nucleated RBC % 0.0 (0.0-0.2) % PT 12.9 (11.1-14.7) Seconds INR 1.0 APTT 24.6 (22.3-36.8) Seconds D-Dimer 0.39 Cancelled (<0.48) ug/mL Sodium 136 L (137-145) mmol/L Potassium 3.8 (3.4-5.0) mmol/L Chloride 104 (98-107) mmol/L Carbon Dioxide 22 (22-30) mmol/L Anion Gap 10 (4-12) mmol/L BUN 13 (7-17) mg/dL Creatinine 0.61 L (0.7-1.0) mg/dL Estim Creat Clear Calc 151 ml/min Estimated GFR > 60 (59 - ) Glucose 180 H (65-110) mg/dL Calcium 9.2 (8.4-10.2) mg/dL Total Bilirubin 0.4 (0.2-1.3) mg/dL AST 23 (14-36) U/L ALT 26 (6-35) U/L Alkaline Phosphatase 102 (38-126) U/L Troponin I < 0.012 (0.000-0.034) ng/mL Total Protein 8.2 (6.3-8.2) g/dL Albumin 4.1 (3.5-5.1) g/dL Lipase 96 (23-300) U/L Influenza A (RT-PCR) Negative (Negative) Influenza B (RT-PCR) Negative (Negative) RSV (RT-PCR) Negative (Negative) SARS-CoV-2 RNA (RT-PCR) Positive A (Negative) 04/06/25 Range/Units 14:42 WBC (4.5-10.0) K/mm3 RBC (4.2-5.4) M/mm3 Hgb (12.0-15.0) g/dL Hct (37.0-47.0) % MCV (80-100) fl MCH (26-34) pg MCHC (32-36) g/dl RDW (11.5-14.5) % Plt Count (150-375) k/mm3 MPV (7.4-10.4) fl Immature Gran % (Auto) (0-0.5) % Neut % (Auto) (45.5-73.1) % Lymph % (Auto) (18.3-44.2) % [place] % (Auto) (2.6-8.5) % Eos % (Auto) (0-4.4) % Baso % (Auto) (0.2-1.2) % Lymph # (Auto) (0.9-3.2) K/mm3 [place] # (Auto) (0.1-0.6) K/mm3 Eos # (Auto) (0-0.3) K/mm3 Baso # (Auto) (0.0-0.1) K/mm3 Abs Immat Gran (auto) (0.00-0.031) K/mm3 Absolute Neuts (auto) (1.3-6.7) K/mm3 Absolute Nucleated RBC (0.0-0.012) K/mm3 Nucleated RBC % (0.0-0.2) % PT (11.1-14.7) Seconds INR APTT (22.3-36.8) Seconds D-Dimer (<0.48) ug/mL Sodium (137-145) mmol/L Potassium (3.4-5.0) mmol/L Chloride (98-107) mmol/L Carbon Dioxide (22-30) mmol/L Anion Gap (4-12) mmol/L BUN (7-17) mg/dL Creatinine (0.7-1.0) mg/dL Estim Creat Clear Calc ml/min Estimated GFR (59 - ) Glucose (65-110) mg/dL Calcium (8.4-10.2) mg/dL Total Bilirubin (0.2-1.3) mg/dL AST (14-36) U/L ALT (6-35) U/L Alkaline Phosphatase (38-126) U/L Troponin I < 0.012 (0.000-0.034) ng/mL Total Protein (6.3-8.2) g/dL Albumin (3.5-5.1) g/dL Lipase (23-300) U/L Influenza A (RT-PCR) (Negative) Influenza B (RT-PCR) (Negative) RSV (RT-PCR) (Negative) SARS-CoV-2 RNA (RT-PCR) (Negative) Imaging Data Radiologist's impression: ITS Impressions Chest X-Ray 04/06/25 12:38 IMPRESSION: 1. No acute cardiopulmonary findings. ECG Data EKG #1: ECG completion date: 04/06/25 normal rate, sinus rhythm, no ST changes and normal QT Critical Care Time Critical Care Time Critical Care Time: No Discharge Plan Discharge Clinical Impression: COVID-19 Patient Disposition: Home Condition: Stable Instructions: COVID-19 (Coronavirus Disease 2019) (ED), How to Recover from COVID-19 at Home (ED) Additional Instructions: Return to the emergency department for worsening symptoms, or any other concerns Remain well-hydrated, get plenty of rest. Take Tylenol or Motrin [id number] for pain as needed. Flonase for nasal congestion. Zyrtec for runny nose. Lozenges or Chloraseptic spray for sore throat. Follow up with your primary care doctor Patient Language: Icelandic Prescriptions: No Action insulin glargine [Basaglar KwikPen U-100 Insulin] 100 unit/mL (3 mL) insulin pen See Rx Instructions .ROUTE .COMPLEX Rx Instructions: see rx instructions Victoza 2-Ulises 0.6 mg/0.1 mL (18 mg/3 mL) pen injector See Rx Instructions .ROUTE .COMPLEX Rx Instructions: for type 1 diabetes lidocaine HCl 3 % lotion 1 applic topical TID PRN (Reason: pain) Qty: 177 0RF Rx Instructions: external use only lisinopril 10 mg tablet gabapentin 300 mg capsule Cosentyx 25 mg/mL Solution IV doxycycline hyclate 100 mg tablet (DME) Accu-Chek Anita Plus test strp Strip See Rx Instructions .Route Qty: 100 0RF Rx Instructions: As directed May substitute brand Follow-up/Referrals: Mery,YINA Donovan [Primary Care Provider, Family Practice]
[2025-04-06 15:16] VITALS: BP 135/87; PULSE 88; RESP 18; O2SAT 100
== END 2025-04-06 15:28 | disposition home or self-care (01) ==
PROVIDERS: Emergency Medicine; Emergency Provider Physician Assistant; PCP Physician Assistant
DX: U07.1 COVID-19 (principal); E10.9 Type 1 diabetes mellitus without complications; M32.9 Systemic lupus erythematosus, unspecified; Z79.85 Long-term (current) use of injectable non-insulin antidiabetic drugs; Z79.4 Long term (current) use of insulin; Z79.899 Other long term (current) drug therapy; I45.10 Unspecified right bundle-branch block; R94.31 Abnormal electrocardiogram [ECG] [EKG]
CPT/HCPCS: 36415; 71046; 80053; 83690; 84484; 85025; 85380; 85610; 85730; 87637; 93005; 99284